=== PATIENT | female | born 1960 | race Caucasian/White ===

== ENCOUNTER 2019-02-12 06:18 | Emergency (ER) | payer OTHER ==
[2019-02-12] MEDS ORDERED: NA CHLORIDE 0.9% 1,000 ML ONE (07:04)
--- NOTE | 2019-02-12 07:18 | RAD REPORT ---
EXAM DESCRIPTION: RAD - Chest Single View - 02/12/2019 7:07 am CLINICAL HISTORY: Dizziness Chest pain. COMPARISON: Chest Single View dated 09/16/2016 FINDINGS: Portable technique limits examination quality. The lungs are mildly emphysematous but grossly clear. The heart is normal in size. Several healed rig ht lateral rib fractures.Hardware is present the cervical spine. IMPRESSION: No acute intrathoracic process suspected.
--- NOTE | 2019-02-12 07:19 | RAD REPORT ---
EXAM DESCRIPTION: CT - Head Brain Wo Cont - 02/12/2019 7:08 am CLINICAL HISTORY: Dizziness;Headache Headache, drowsiness COMPARISON: No comparisonsChest Abdomen Pelvis W Cont dated 09/16/2016 TECHNIQUE: All CT scans are performed using dose optimization technique as appropriate and may inclu de automated exposure control or mA/KV adjustment according to patient size. FINDINGS: No intracranial hemorrhage, hydrocephalus or extra-axial fluid collection.Mild brain atrop hy.No areas of brain edema or evidence of midline shift. The paranasal sinuses and mastoids are clear. The calvarium is intact. IMPRESSION: No acute intracranial abnormality.
[2019-02-12 07:31] LABS: Absolute Lymphocytes (CBC) 1.9 K/uL (0.7-4.9); Basophils % 0.5 % (0-1.3); Hematocrit 45.4 % (36.0-45.0); Lymphocytes % 21.9 % (15.3-44.8); RBC Red Blood Cell Count 4.84 M/uL (3.86-4.86)
[2019-02-12 07:32] LABS: Protime INR 1.09
[2019-02-12 07:44] LABS: ALT/SGPT 39 U/L (12-78); AST/SGOT 51 U/L (15-37); Albumin 3.7 g/dL (3.4-5.0); Alkaline Phosphatase 171 U/L (45-117); BUN Blood Urea Nitrogen 9 mg/dL (7-18); Bicarbonate 29 mmol/L (21-32); Bilirubin Direct 0.3 mg/dL (0-0.2); Bilirubin Total 0.7 mg/dL (0.2-1.0); Glucose Level 125 mg/dL (74-106); Magnesium 2.2 mg/dL (1.8-2.4); NT PRO-BNP 718 pg/mL (<125); Potassium 4.2 mmol/L (3.5-5.1); Protein, Total 7.1 g/dL (6.4-8.2); Sodium Level 139 mmol/L (136-145); Troponin (Emerg Dept Use Only) < 0.02 ng/mL (0.0-0.045)
--- NOTE | 2019-02-12 08:06 | ER ---
Nurse's Notes [facility] Name: Melanie Crump Age: 58 yrs Sex: Female : 1960 Arrival Date: 02/12/2019 Time: 06:22 Bed 13 Private MD: Queta Finley Diagnosis: Orthostatic hypotension;Dehydration Presentation: 02/12 06:29 Presenting complaint: Patient states: I have been dizzy for the last three weeks I have la1 been feeling dizzy and the place where I have had a few failed surgeries on my neck and its killing me. Transition of care: patient was not received from another setting of care. Onset of symptoms was February 12, 2019. Risk Assessment: Do you want to hurt yourself or someone else? Patient reports no desire to harm self or others. Initial Sepsis Screen: Does the patient meet any 2 criteria? No. Patient's initial sepsis screen is negative. Does the patient have a suspected source of infection? No. Patient's initial sepsis screen is negative. Care prior to arrival: None. 06:29 Method Of Arrival: Ambulatory la1 06:29 Acuity: BON 3 la1 Historical: - Allergies: 06:30 No Known Allergies; la1 - PMHx: 06:30 Chronic pain; Hypertension; la1 - Immunization history:: Adult Immunizations up to date. - Social history:: Smoking status: Patient/guardian denies using tobacco. - Ebola Screening: : No symptoms or risks identified at this time. Screenin:31 VAN Screening: Arm Drift: Patient shows no arm weakness. Patient is VAN negative. la1 06:44 Abuse screen: Denies threats or abuse. Nutritional screening: No deficits noted. la1 Tuberculosis screening: No symptoms or risk factors identified. Fall Risk None identified. Assessment: 06:43 General: Appears in no apparent distress. Behavior is calm, cooperative. Pain: la1 Complains of pain in neck. Neuro: Level of Consciousness is awake, alert, obeys commands, Oriented to person, place, time, situation. Cardiovascular: Heart tones S1 S2 present Capillary refill < 3 seconds Patient's skin is warm and dry. Respiratory: Airway is patent Respiratory effort is even, unlabored, Respiratory pattern is regular, symmetrical. GI: No signs and/or symptoms were reported involving the gastrointestinal system. : No signs and/or symptoms were reported regarding the genitourinary system. Musculoskeletal: Circulation, motion, and sensation intact. Capillary refill < 3 seconds, is brisk, in bilateral fingers. Vital Signs: 06:31 BP 90 / 77; Pulse 88; Resp 16; Temp 97.4; Pulse Ox 100% on R/A; Weight 55.34 kg; Height la1 5 ft. 5 in. (165.10 cm); 07:25 BP 147 / 78 Supine; Pulse 50; la1 07:25 BP 88 / 64 Standing; Pulse 71; la1 07:45 BP 116 / 84 Standing; Pulse 54; la1 06:31 Body Mass Index 20.30 (55.34 kg, 165.10 cm) la1 ED Course: 06:22 Patient arrived in ED. mr 06:22 Queta Finley MD is Private Physician. mr 06:30 Triage completed. la1 06:31 Arm band placed on right wrist. la1 06:38 [facility] pm1 06:38 Kade Edouard MD is Attending Physician. pm1 06:43 Serg Ireland RN is Primary Nurse. la1 06:43 Patient has correct armband on for positive identification. la1 07:08 CT Head Brain wo Cont In Process Unspecified. EDMS 07:08 XRAY Chest (1 view) In Process Unspecified. EDMS 08:17 No provider procedures requiring assistance completed. IV discontinued, intact, la1 bleeding controlled, No redness/swelling at site. Pressure dressing applied. Administered Medications: 07:23 Drug: NS 0.9% 1000 ml Route: IV; Rate: 1000 ml; Site: right antecubital; la1 07:46 Follow up: IV Status: Completed infusion la1 Outcome: 08:05 Discharge ordered by . pm1 08:17 Discharged to home ambulatory. la1 08:17 Condition: stable 08:17 Discharge instructions given to patient, Instructed on discharge instructions, follow up and referral plans. medication usage, Demonstrated understanding of instructions, follow-up care, medications. 08:17 Patient left the ED. la1 Signatures: Dispatcher [employer] [facility] Raquel Guadalupe mr Serg Ireland RN RN la1 Trevor Nazario NP [employer] pm1
--- NOTE | 2019-02-12 08:06 | EDPHYS ---
Physician Documentation [facility] Name: Melanie Crump Age: 58 yrs Sex: Female : 1960 Arrival Date: 02/12/2019 Time: 06:22 Bed 13 Private MD: Queta Finley ED Physician Kade Edouard HPI: 02/12 06:59 This 58 yrs old Female presents to ER via Ambulatory with complaints of pm1 Dizziness, Falling down. 06:59 The patient presents with feeling faint. Onset: The symptoms/episode began/occurred 3 pm1 week(s) ago. Context: occurred at home, occurred while the patient was standing up from sitting or lying position. just prior to the episode the patient experienced no apparent symptoms. Modifying factors: The symptoms are alleviated by lying down, the symptoms are aggravated by standing up, changing position. Associated signs and symptoms: The patient has no apparent associated signs or symptoms, Pertinent positives: bruise to right side of forehead, Pertinent negatives: chest pain, nausea, numbness, tingling, vomiting. Severity of symptoms: in the emergency department the symptoms are unchanged. Patient's baseline: Neuro: alert and fully oriented, Motor: no deficits, Ambulation: walks without assistance. The patient has not experienced similar symptoms in the past. The patient has not recently seen a physician. 06:59 Patient's reports dizziness occurs about 3 seconds after getting up from sitting or pm1 lying position. Historical: - Allergies: 06:30 No Known Allergies; la1 - PMHx: 06:30 Chronic pain; Hypertension; la1 - Immunization history:: Adult Immunizations up to date. - Social history:: Smoking status: Patient/guardian denies using tobacco. - Ebola Screening: : No symptoms or risks identified at this time. ROS: 06:59 Constitutional: Negative for fever, chills, and weight loss, Eyes: Negative for injury, pm1 pain, redness, and discharge, ENT: Negative for injury, pain, and discharge, Neck: Negative for injury, pain, and swelling, Cardiovascular: Negative for chest pain, palpitations, and edema, Respiratory: Negative for shortness of breath, cough, wheezing, and pleuritic chest pain, Abdomen/GI: Negative for abdominal pain, nausea, vomiting, diarrhea, and constipation, Back: Negative for injury and pain, : Negative for injury, bleeding, discharge, and swelling, MS/Extremity: Negative for injury and deformity, Skin: Negative for injury, rash, and discoloration. 06:59 Neuro: Positive for dizziness, Negative for headache, numbness, tingling, weakness. Exam: 06:59 Constitutional: This is a well developed, well nourished patient who is awake, alert, pm1 and in no acute distress. Head/Face: Normocephalic, atraumatic. Eyes: Pupils equal round and reactive to light, extra-ocular motions intact. Lids and lashes normal. Conjunctiva and sclera are non-icteric and not injected. Cornea within normal limits. Periorbital areas with no swelling, redness, or edema. ENT: Nares patent. No nasal discharge, no septal abnormalities noted. Tympanic membranes are normal and external auditory canals are clear. Oropharynx with no redness, swelling, or masses, exudates, or evidence of obstruction, uvula midline. Mucous membranes moist. Neck: Trachea midline, no thyromegaly or masses palpated, and no cervical lymphadenopathy. Supple, full range of motion without nuchal rigidity, or vertebral point tenderness. No Meningismus. Chest/axilla: Normal chest wall appearance and motion. Nontender with no deformity. No lesions are appreciated. Cardiovascular: Regular rate and rhythm with a normal S1 and S2. No gallops, murmurs, or rubs. Normal PMI, no JVD. No pulse deficits. Respiratory: Lungs have equal breath sounds bilaterally, clear to auscultation and percussion. No rales, rhonchi or wheezes noted. No increased work of breathing, no retractions or nasal flaring. Abdomen/GI: Soft, non-tender, with normal bowel sounds. No distension or tympany. No guarding or rebound. No evidence of tenderness throughout. Back: No spinal tenderness. No costovertebral tenderness. Full range of motion. Skin: Warm, dry with normal turgor. Normal color with no rashes, no lesions, and no evidence of cellulitis. MS/ Extremity: Pulses equal, no cyanosis. Neurovascular intact. Full, normal range of motion. 06:59 Neuro: Orientation: is normal, Motor: is normal, moves all fours, strength is normal, strength is 5/5 in all extremities. Vital Signs: 06:31 BP 90 / 77; Pulse 88; Resp 16; Temp 97.4; Pulse Ox 100% on R/A; Weight 55.34 kg; Height la1 5 ft. 5 in. (165.10 cm); 07:25 BP 147 / 78 Supine; Pulse 50; la1 07:25 BP 88 / 64 Standing; Pulse 71; la1 07:45 BP 116 / 84 Standing; Pulse 54; la1 06:31 Body Mass Index 20.30 (55.34 kg, 165.10 cm) la1 MDM: 06:41 Patient medically screened. pm1 07:58 Data reviewed: vital signs. Data interpreted: Pulse oximetry: on room air is 100 %. pm1 Interpretation: normal. Counseling: I had a detailed discussion with the patient and/or guardian regarding: the historical points, exam findings, and any diagnostic results supporting the discharge/admit diagnosis, lab results, radiology results, the need for outpatient follow up. 02/12 06:52 Order name: Basic Metabolic Panel; Complete Time: 07:58 pm1 02/12 06:52 Order name: CBC with Diff; Complete Time: 07:36 pm1 02/12 06:52 Order name: LFT's; Complete Time: 07:58 pm1 02/12 06:52 Order name: Magnesium; Complete Time: 07:58 pm1 02/12 06:52 Order name: NT PRO-BNP; Complete Time: 07:58 pm1 02/12 06:52 Order name: PT-INR; Complete Time: 07:36 pm1 02/12 06:52 Order name: CT Head Brain wo Cont; Complete Time: 07:25 pm1 02/12 06:52 Order name: Troponin (emerg Dept Use Only); Complete Time: 07:58 pm1 02/12 06:52 Order name: XRAY Chest (1 view); Complete Time: 07:25 pm1 02/12 06:52 Order name: EKG; Complete Time: 06:53 pm1 02/12 06:52 Order name: Cardiac monitoring; Complete Time: 07:03 pm1 02/12 06:52 Order name: EKG - Nurse/Tech; Complete Time: 07:03 pm1 02/12 06:52 Order name: IV Saline Lock; Complete Time: 07:03 pm1 02/12 06:52 Order name: Labs collected and sent; Complete Time: 07:03 pm1 02/12 06:52 Order name: O2 Per Protocol; Complete Time: 07:03 pm1 02/12 06:52 Order name: O2 Sat Monitoring; Complete Time: 07:03 pm1 02/12 06:52 Order name: Orthostatics; Complete Time: 07:23 pm1 Administered Medications: 07:23 Drug: NS 0.9% 1000 ml Route: IV; Rate: 1000 ml; Site: right antecubital; la1 07:46 Follow up: IV Status: Completed infusion la1 Disposition: 02/12/19 08:05 Discharged to Home. Impression: Orthostatic hypotension, Dehydration. - Condition is Stable. - Discharge Instructions: Dehydration, Adult, Orthostatic Hypotension, Rehydration, Adult. - Medication Reconciliation Form, Thank You Letter, Antibiotic Education, Prescription Opioid Use form. - Follow up: Emergency Department; When: As needed; Reason: Worsening of condition. Follow up: Private Physician; When: 2 - 3 days; Reason: Recheck today's complaints, Continuance of care, Re-evaluation by your physician. - Problem is new. - Symptoms have improved. Addendum: 02/14/2019 17:17 Co-signature as Attending Physician, Kade Edouard MD. g s Signatures: Dispatcher [employer] EDMS Serg Ireland RN RN la1 Trevor Nazario, KELSIE MARZIPAN MAKER pm1 Kade Edouard MD MD Corrections: (The following items were deleted from the chart) 02/12 08:17 08:05 02/12/2019 08:05 Discharged to Home. Impression: Orthostatic hypotension; la1 Dehydration. Condition is Stable. Forms are Medication Reconciliation Form, Thank You Letter, Antibiotic Education, Prescription Opioid Use. Follow up: Emergency Department; When: As needed; Reason: Worsening of condition. Follow up: Private Physician; When: 2 - 3 days; Reason: Recheck today's complaints, Continuance of care, Re-evaluation by your physician. Problem is new. Symptoms have improved. pm1
[2019-02-12 08:23] VITALS: TEMP 97.4; O2SAT 100
[2019-02-12 08:25] VITALS: BP 116/84
--- NOTE | 2019-02-12 12:28 | EKG ---
Test Date: 2019-02-12 Test Time: 07:33:09 Smalltalk Developer: DEBRA MEASUREMENT RESULTS: Intervals: Rate: 53 DC: 156 QRSD: 92 QT: 544 QTc: 510 [place]: P: 48 DC: 156 QRS: -15 T: 7 INTERPRETIVE STATEMENTS: Sinus bradycardia T wave abnormality, consider anterior ischemia Prolonged QT Abnormal ECG No previous ECG available for comparison Electronically Signed On 02-12-19 12:26:49 CDT by Robbie Viramontes
== END 2019-02-12 08:17 | disposition home or self-care (01) ==
LOC: ER 06:18
DX: I95.1 Orthostatic hypotension (principal); E86.0 Dehydration
CPT/HCPCS: 93005; 85025; 80048; 36415; 83735; 85610; 80076; 84484; 83880; 70450; 71045; 99283; J7030

== ENCOUNTER 2019-05-06 13:54 | Emergency (ER) | payer OTHER ==
--- NOTE | 2019-05-06 15:29 | RAD REPORT ---
EXAM DESCRIPTION: RAD -Hand Left 3 View - 05/06/2019 3:00 pm CLINICAL HISTORY: Left hand pain FINDINGS: No fracture Marked arthritis involves the first carpometacarpal joint consisting of osteophytes, erosions, subcho ndral cysts and bony fragmentation. Mild subluxation of the first metacarpal. Presumably these are al l chronic findings. A superimposed erosive arthritis could be present as well. Osteoporosis. Erosions involve second and third DIP joints. Narrowing of fourth and fifth DIP joints.
[2019-05-06] MEDS ORDERED: ONDANSETRON 4 MG/2 ML VIAL ONE (16:00)
[2019-05-06] MEDS ORDERED: NA CHLORIDE 0.9% 1,000 ML ONE (16:00)
[2019-05-06] MEDS ORDERED: KETOROLAC 30 MG/ML INJ ONE (16:00)
[2019-05-06] MEDS ORDERED: HYDROMORPHONE HCL 1 MG/ML INJ ONE ×2 (16:00→16:35)
[2019-05-06] MEDS ORDERED: COLCHICINE 0.6 MG TAB ONE (16:00)
[2019-05-06 16:09] LABS: Absolute Lymphocytes (CBC) 0.6 K/uL (0.7-4.9); Basophils % 0.2 % (0-1.3); Hematocrit 49.1 % (36.0-45.0); Lymphocytes % 5.1 % (15.3-44.8); MPV 8.7 fL (7.6-11.3); RBC Red Blood Cell Count 5.08 M/uL (3.86-4.86)
[2019-05-06 16:24] LABS: Albumin 4.3 g/dL (3.4-5.0); Bilirubin Total 0.8 mg/dL (0.2-1.0); Potassium 3.5 mmol/L (3.5-5.1); Protein, Total 7.5 g/dL (6.4-8.2); Uric Acid 6.3 mg/dL (2.6-6.0)
[2019-05-06] MEDS ORDERED: AMLODIPINE 5 MG TAB ONE (16:35)
[2019-05-06] MEDS ORDERED: dexAMETHasone 10 MG/ML VIAL ONE (16:48)
--- NOTE | 2019-05-06 17:00 | EDPHYS ---
Physician Documentation [facility] Name: Melanie Crump Age: 58 yrs Sex: Female : 1960 Arrival Date: 05/06/2019 Time: 13:56 Bed 17 Private MD: Queta Finley ED Physician Asael Camara HPI: 05/06 15:50 This 58 yrs old Female presents to ER via Ambulatory with complaints of Hand julien Pain. 15:50 The patient or guardian reports decreased range of motion, pain. The complaints affect julien the [facility] of right thumb. Context: The problem was sustained at an unknown location, resulted from an unknown cause. Onset: The symptoms/episode began/occurred 2 day(s) ago. Modifying factors: The symptoms are alleviated by elevation, holding still, the symptoms are aggravated by nothing. Associated signs and symptoms: The patient has no apparent associated signs or symptoms. Severity of symptoms: At their worst the symptoms were moderate, in the emergency department the symptoms are unchanged. Historical: - Allergies: 14:17 No Known Allergies; sg - Home Meds: 14:56 morphine 30 mg Oral CM24 1 cap once daily for Chronic Pain [Active]; tizanidine oral tw2 oral [Active]; - PMHx: 14:17 Chronic pain; Hypertension; sg 14:56 Arthritis; tw2 - Immunization history:: Adult Immunizations not up to date. - Social history:: Smoking status: Patient/guardian denies using tobacco. - Ebola Screening: : Patient negative for fever greater than or equal to 101.5 degrees Fahrenheit, and additional compatible Ebola Virus Disease symptoms Patient denies exposure to infectious person Patient denies travel to an Ebola-affected area in the 21 days before illness onset No symptoms or risks identified at this time. - Family history:: not pertinent. ROS: 15:50 Constitutional: Negative for fever, chills, and weight loss. julien Exam: 15:50 Constitutional: This is a well developed, well nourished patient who is awake, alert, julien and in no acute distress. Head/Face: Normocephalic, atraumatic. Eyes: Pupils equal round and reactive to light, extra-ocular motions intact. Lids and lashes normal. Conjunctiva and sclera are non-icteric and not injected. Cornea within normal limits. Periorbital areas with no swelling, redness, or edema. ENT: Nares patent. No nasal discharge, no septal abnormalities noted. Tympanic membranes are normal and external auditory canals are clear. Oropharynx with no redness, swelling, or masses, exudates, or evidence of obstruction, uvula midline. Mucous membranes moist. Neck: Trachea midline, no thyromegaly or masses palpated, and no cervical lymphadenopathy. Supple, full range of motion without nuchal rigidity, or vertebral point tenderness. No Meningismus. Chest/axilla: Normal chest wall appearance and motion. Nontender with no deformity. No lesions are appreciated. Cardiovascular: Regular rate and rhythm with a normal S1 and S2. No gallops, murmurs, or rubs. Normal PMI, no JVD. No pulse deficits. Respiratory: Lungs have equal breath sounds bilaterally, clear to auscultation and percussion. No rales, rhonchi or wheezes noted. No increased work of breathing, no retractions or nasal flaring. Abdomen/GI: Soft, non-tender, with normal bowel sounds. No distension or tympany. No guarding or rebound. No evidence of tenderness throughout. Back: No spinal tenderness. No costovertebral tenderness. Full range of motion. Skin: Warm, dry with normal turgor. Normal color with no rashes, no lesions, and no evidence of cellulitis. Neuro: Awake and alert, GCS 15, oriented to person, place, time, and situation. Cranial nerves II-XII grossly intact. Motor strength 5/5 in all extremities. Sensory grossly intact. Cerebellar exam normal. Normal gait. Psych: Awake, alert, with orientation to person, place and time. Behavior, mood, and affect are within normal limits. 15:50 Musculoskeletal/extremity: Extremities: noted in the lateral aspect of right hand: decreased ROM, erythema, pain. Vital Signs: 14:19 Pulse 107; Resp 17; Temp 97.7; Pulse Ox 98% on R/A; Weight 54.43 kg; Height 5 ft. 5 in. sg (165.10 cm); Pain 10/10; 14:21 BP 181 / 100; sg 14:54 BP 173 / 118; Pulse 103; Resp 17; Pulse Ox 96% on R/A; Pain 10/10; tw2 15:35 BP 177 / 115; Pulse 93; Resp 17; Pulse Ox 95% on R/A; tw2 16:24 BP 184 / 126; Pulse 115; Resp 20; Pulse Ox 95% on R/A; Pain 9/10; tw2 17:09 BP 172 / 115; Pulse 109; Resp 17; Pulse Ox 95% on R/A; Pain 7/10; tw2 17:43 BP 166 / 103; Pulse 100; Resp 17; Pulse Ox 95% on R/A; Pain 6/10; tw2 14:19 Body Mass Index 19.97 (54.43 kg, 165.10 cm) sg 14:54 provider notified. tw2 MDM: 14:34 Patient medically screened. julien 15:51 Data reviewed: vital signs, nurses notes, lab test result(s), radiologic studies, plain julien films. 05/06 15:50 Order name: CBC with Diff [facility] 05/06 15:50 Order name: Comprehensive Metabolic Panel; Complete Time: 16:25 [facility] 05/06 14:35 Order name: Hand Left 3 View XRAY; Complete Time: 15:52 [facility] 05/06 15:50 Order name: Uric Acid; Complete Time: 16:25 [facility] 05/06 15:53 Order name: Splint - Thumb Spica; Complete Time: 16:48 [facility] 05/06 15:59 Order name: IV Start; Complete Time: 15:59 tw2 Administered Medications: 16:00 Drug: NS 0.9% 1000 ml Route: IV; Rate: 1 bolus; Site: right antecubital; tw2 17:43 Follow up: Response: No adverse reaction; IV Status: Completed infusion; IV Intake: tw2 1000ml 16:00 Drug: Colcrys 1.2 mg Route: PO; tw2 17:04 Follow up: Response: No adverse reaction tw2 16:00 Drug: TORadol 30 mg Route: IVP; Site: right antecubital; tw2 16:23 Follow up: Response: No adverse reaction; Pain is unchanged, physician notified tw2 16:01 Drug: Zofran 4 mg Route: IVP; Site: right antecubital; tw2 16:29 Follow up: Response: No adverse reaction tw2 16:03 Drug: Dilaudid 1 mg Route: IVP; Site: right antecubital; tw2 16:23 Follow up: Response: No adverse reaction; Pain is unchanged, physician notified; RASS: tw2 Alert and Calm (0) 16:35 Drug: Norvasc 10 mg Route: PO; tw2 17:37 Follow up: Response: No adverse reaction; No change in condition; Blood pressure is tw2 unchanged; Blood pressure is unchanged, physician notified, 16:35 Drug: Dilaudid 1 mg Route: IVP; Site: right antecubital; tw2 17:43 Follow up: Response: No adverse reaction; Pain is decreased; RASS: Restless (+1) tw2 16:47 CANCELLED (Duplicate Order): Dilaudid 1 mg IVP once; RASS on ADMIN: Combtv4, Very tw2 Agttd3, Agttd2, Rstlss1, AlertClm0, Drwsy-1, Lt Sdtn-2, Mod Sdtn-3, Dp Sdtn-4, UnArsble-5 17:00 Drug: Decadron - Dexamethasone 10 mg Route: IVP; Site: right antecubital; tw2 17:43 Follow up: Response: No adverse reaction tw2 17:04 Drug: Colcrys 0.6 mg Route: PO; tw2 17:30 Follow up: Response: No adverse reaction tw2 Disposition: 05/06/19 16:59 Discharged to Home. Impression: Pain in right hand - MCM, Osteoarthritis, unspecified site, Essential (primary) hypertension. - Condition is Stable. - Discharge Instructions: Arthritis, Hypertension, Musculoskeletal Pain, Hypertension, Oxit-yd-Brvb, Arthritis, Fxjf-wf-Dkoc, Hand Pain. - Prescriptions for Colchicine- Probenecid 0.5-500 mg Oral Tablet - take 1 tablet by ORAL route every 1 hour up to 3 hours; 3 tablet. Motrin IB 200 mg Oral Tablet - take 2 tablet by ORAL route every 6 hours As needed as needed with food; 30 tablet. Norvasc 5 mg Oral Tablet - take 1 tablet by ORAL route once daily; 20 tablet. Dexamethasone 0.5 mg Oral Tablet - take 1 tablet by ORAL route 3 times per day; 9 tablet. - Medication Reconciliation Form, Thank You Letter, Antibiotic Education, Prescription Opioid Use form. - Follow up: Queta Finley; When: 2 - 3 days; Reason: Recheck today's complaints, Continuance of care, Re-evaluation by your physician. Follow up: Steve Arthur; When: 2 - 3 days; Reason: Recheck today's complaints, Re-evaluation by your physician. - Problem is new. - Symptoms have improved. Signatures: Dispatcher [employer] EDEdmar Sanchez RN RN Asael Paredes MD MD cha Wise, Tara RN RN tw2 Corrections: (The following items were deleted from the chart) 16:47 16:34 Dilaudid 1 mg IVP once; RASS on ADMIN: Combtv4, Very Agttd3, Agttd2, Rstlss1, tw2 AlertClm0, Drwsy-1, Lt Sdtn-2, Mod Sdtn-3, Dp Sdtn-4, UnArsble-[address] [facility] 17:44 16:59 05/06/2019 16:59 Discharged to Home. Impression: Pain in right hand - MCM; tw2 Osteoarthritis, unspecified site; Essential (primary) hypertension. Condition is Stable. Discharge Instructions: Arthritis, Musculoskeletal Pain, Arthritis, Sbjt-wf-Jfcy, Hand Pain, Hypertension, Hypertension, Enxh-lh-Gkfi. Prescriptions for Colchicine-Probenecid 0.5-500 mg Oral Tablet - take 1 tablet by ORAL route every 1 hour up to 3 hours; 3 tablet, Motrin IB 200 mg Oral Tablet - take 2 tablet by ORAL route every 6 hours As needed as needed with food; 30 tablet, Norvasc 5 mg Oral Tablet - take 1 tablet by ORAL route once daily; 20 tablet, Dexamethasone 0.5 mg Oral Tablet - take 1 tablet by ORAL route 3 times per day; 9 tablet. and Forms are Medication Reconciliation Form, Thank You Letter, Antibiotic Education, Prescription Opioid Use. Follow up: Queta Finley; When: 2 - 3 days; Reason: Recheck today's complaints, Continuance of care, Re-evaluation by your physician. Follow up: Steve Arthur; When: 2 - 3 days; Reason: Recheck today's complaints, Re-evaluation by your physician. Problem is new. Symptoms have improved. julien
--- NOTE | 2019-05-06 17:00 | ER ---
Nurse's Notes [facility] Name: Melanie Crump Age: 58 yrs Sex: Female : 1960 Arrival Date: 05/06/2019 Time: 13:56 Bed 17 Private MD: Queta Finley Diagnosis: Pain in right hand-MCM;Osteoarthritis, unspecified site;Essential (primary) hypertension Presentation: 05/06 14:20 Presenting complaint: Patient states: I have had left hand and thumb pain for about a sg day, with swelling and tenderness to the hand, there is a hx of arthritis reported, denies injury or trauma. Transition of care: patient was not received from another setting of care. Onset of symptoms was May 06, 2019. Risk Assessment: Do you want to hurt yourself or someone else? Patient reports no desire to harm self or others. Initial Sepsis Screen: Does the patient meet any 2 criteria? HR > 90 bpm. No. Patient's initial sepsis screen is negative. Does the patient have a suspected source of infection? No. Patient's initial sepsis screen is negative. Care prior to arrival: None. 14:20 Method Of Arrival: Ambulatory sg 14:20 Acuity: BON 3 sg Historical: - Allergies: 14:17 No Known Allergies; sg - Home Meds: 14:56 morphine 30 mg Oral CM24 1 cap once daily for Chronic Pain [Active]; tizanidine oral tw2 oral [Active]; - PMHx: 14:17 Chronic pain; Hypertension; sg 14:56 Arthritis; tw2 - Immunization history:: Adult Immunizations not up to date. - Social history:: Smoking status: Patient/guardian denies using tobacco. - Ebola Screening: : Patient negative for fever greater than or equal to 101.5 degrees Fahrenheit, and additional compatible Ebola Virus Disease symptoms Patient denies exposure to infectious person Patient denies travel to an Ebola-affected area in the 21 days before illness onset No symptoms or risks identified at this time. - Family history:: not pertinent. Screenin:55 Abuse screen: Denies injuries from another. Nutritional screening: No deficits noted. tw2 Tuberculosis screening: No symptoms or risk factors identified. Fall Risk None identified. Assessment: 14:25 General: Appears uncomfortable, slender, well groomed, Behavior is cooperative, tw2 appropriate for age. Pain: Complains of pain in left hand. Neuro: Level of Consciousness is awake, alert, obeys commands, Oriented to person, place, time, situation. Cardiovascular: Heart tones S1 S2 Patient's skin is warm and dry. Respiratory: Airway is patent Respiratory effort is even, unlabored, Respiratory pattern is regular, symmetrical, Breath sounds are clear bilaterally. GI: No signs and/or symptoms were reported involving the gastrointestinal system. Abdomen is flat. : No signs and/or symptoms were reported regarding the genitourinary system. EENT: No signs and/or symptoms were reported regarding the EENT system. Derm: No signs and/or symptoms reported regarding the dermatologic system. Musculoskeletal: Swelling present in lateral aspect of left hand with redness noted to medial aspect of left wrist, appears to be arthritic changes noted to all joints in hands b/l. 15:34 Reassessment: No changes from previously documented assessment. Patient and/or family tw2 updated on plan of care and expected duration. Pain level reassessed. Patient is alert, oriented x 3, equal unlabored respirations, skin warm/dry/pink. pts family request update on pts condition, provider notified. 15:46 Reassessment: provider at bedside at this time. tw2 16:24 Reassessment: No changes from previously documented assessment. Patient and/or family tw2 updated on plan of care and expected duration. Pain level reassessed. Patient is alert, oriented x 3, equal unlabored respirations, skin warm/dry/pink. Patient states symptoms have not improved. 17:09 Reassessment: No changes from previously documented assessment. Patient and/or family tw2 updated on plan of care and expected duration. Pain level reassessed. Patient is alert, oriented x 3, equal unlabored respirations, skin warm/dry/pink. pt states "it feels just a bit better and my daughter should be on her way shortly.". 17:37 Reassessment: Patient and/or family updated on plan of care and expected duration. Pain tw2 level reassessed. Patient is alert, oriented x 3, equal unlabored respirations, skin warm/dry/pink. Patient states feeling better. Vital Signs: 14:19 Pulse 107; Resp 17; Temp 97.7; Pulse Ox 98% on R/A; Weight 54.43 kg; Height 5 ft. 5 in. sg (165.10 cm); Pain 10/10; 14:21 BP 181 / 100; sg 14:54 BP 173 / 118; Pulse 103; Resp 17; Pulse Ox 96% on R/A; Pain 10/10; tw2 15:35 BP 177 / 115; Pulse 93; Resp 17; Pulse Ox 95% on R/A; tw2 16:24 BP 184 / 126; Pulse 115; Resp 20; Pulse Ox 95% on R/A; Pain 9/10; tw2 17:09 BP 172 / 115; Pulse 109; Resp 17; Pulse Ox 95% on R/A; Pain 7/10; tw2 17:43 BP 166 / 103; Pulse 100; Resp 17; Pulse Ox 95% on R/A; Pain 6/10; tw2 14:19 Body Mass Index 19.97 (54.43 kg, 165.10 cm) sg 14:54 provider notified. tw2 ED Course: 13:56 Patient arrived in ED. mr 13:56 Rony Montano MD is Private Physician. mr 13:56 Queta Finley MD is Private Physician. mr 14:17 Arm band placed on. sg 14:21 Triage completed. sg 14:21 Bed in low position. Call light in reach. Adult w/ patient. campus monitor on. Pulse tw2 ox on. NIBP on. Warm blanket given. 14:26 Stephania Arce, RN is Primary Nurse. tw2 14:34 Asael Camara MD is Attending Physician. julien 14:59 Hand Left 3 View XRAY In Process Unspecified. EDMS 15:55 Inserted saline lock: 22 gauge in right antecubital area, using aseptic technique. tw2 Blood collected. 16:58 Queta Finley MD is Referral Physician. julien 16:58 Steve Arthur MD is Referral Physician. julien 17:10 Awaiting transportation, Awaiting: d/t pain medicine given during this visit. tw2 17:43 No provider procedures requiring assistance completed. IV discontinued, intact, tw2 bleeding controlled, No redness/swelling at site. Pressure dressing applied. Administered Medications: 16:00 Drug: NS 0.9% 1000 ml Route: IV; Rate: 1 bolus; Site: right antecubital; tw2 17:43 Follow up: Response: No adverse reaction; IV Status: Completed infusion; IV Intake: tw2 1000ml 16:00 Drug: Colcrys 1.2 mg Route: PO; tw2 17:04 Follow up: Response: No adverse reaction tw2 16:00 Drug: TORadol 30 mg Route: IVP; Site: right antecubital; tw2 16:23 Follow up: Response: No adverse reaction; Pain is unchanged, physician notified tw2 16:01 Drug: Zofran 4 mg Route: IVP; Site: right antecubital; tw2 16:29 Follow up: Response: No adverse reaction tw2 16:03 Drug: Dilaudid 1 mg Route: IVP; Site: right antecubital; tw2 16:23 Follow up: Response: No adverse reaction; Pain is unchanged, physician notified; RASS: tw2 Alert and Calm (0) 16:35 Drug: Norvasc 10 mg Route: PO; tw2 17:37 Follow up: Response: No adverse reaction; No change in condition; Blood pressure is tw2 unchanged; Blood pressure is unchanged, physician notified, 16:35 Drug: Dilaudid 1 mg Route: IVP; Site: right antecubital; tw2 17:43 Follow up: Response: No adverse reaction; Pain is decreased; RASS: Restless (+1) tw2 16:47 CANCELLED (Duplicate Order): Dilaudid 1 mg IVP once; RASS on ADMIN: Combtv4, Very tw2 Agttd3, Agttd2, Rstlss1, AlertClm0, Drwsy-1, Lt Sdtn-2, Mod Sdtn-3, Dp Sdtn-4, UnArsble-5 17:00 Drug: Decadron - Dexamethasone 10 mg Route: IVP; Site: right antecubital; tw2 17:43 Follow up: Response: No adverse reaction tw2 17:04 Drug: Colcrys 0.6 mg Route: PO; tw2 17:30 Follow up: Response: No adverse reaction tw2 Intake: 17:43 IV: 1000ml; Total: 1000ml. tw2 Outcome: 16:59 Discharge ordered by . julien 17:43 Discharged to home ambulatory, with family. tw2 17:43 Condition: stable 17:43 Discharge instructions given to patient, family, Instructed on discharge instructions, follow up and referral plans. no drinking with medication, no driving heavy equipment, medication usage, Demonstrated understanding of instructions, follow-up care, medications, Prescriptions given X 4. 17:44 Patient left the ED. tw2 Signatures: Dispatcher [employer] EDEdmar Sanchez RN RN sg Anderson, Corey, MD MD cha Rivera, Mary mr Wise, Tara, RN RN tw2
[2019-05-06 20:36] LABS: Blood Morphology Comment NOT SEEN (NOT SEEN); Platelet Estimate ADEQ; Urine White Blood Cell Casts OK
== END 2019-05-06 17:44 | disposition home or self-care (01) ==
LOC: ER 13:54
DX: M19.041 Primary osteoarthritis, right hand (principal); I10 Essential (primary) hypertension
CPT/HCPCS: 96361; 85025; 36415; 84550; 80053; 73130; 96375; 96374; 99284; J1100; J1170 ×2; J7030; J2405

== ENCOUNTER 2019-09-19 09:40 | Emergency (ER) | payer OTHER ==
[2019-09-19] MEDS ORDERED: HYDROMORPHONE HCL 0.5 MG/0.5 ML INJ ONE ×2 (10:09→10:30)
[2019-09-19] MEDS ORDERED: ONDANSETRON 4 MG/2 ML VIAL ONE (10:09)
[2019-09-19 10:25] LABS: Absolute Lymphocytes (CBC) 1.9 K/uL (0.7-4.9); Basophils % 0.3 % (0-1.3); Hematocrit 52.4 % (36.0-45.0); Lymphocytes % 16.4 % (15.3-44.8); MPV 9.5 fL (7.6-11.3); RBC Red Blood Cell Count 5.42 M/uL (3.86-4.86)
[2019-09-19 10:26] LABS: Protime INR 1.02
[2019-09-19 10:30] LABS: Potassium 3.8 mmol/L (3.5-5.1)
--- OUTSIDE RECORDS SUMMARY | 2019-09-19 10:30 | XMS REPORT | Summary of Care ---
:[address] [facility] Address [address] [place] [id number] Encounter HQ Encntr_yolanda(FIN) [id number] Date(s): 09/16/16 - 09/20/[address] Professional Services provided by [facility] [place] [address]- Discharge Disposition: Home or Self Care Attending Physician: Abel Jackson MD Admitting Physician: Abel Jackson MD Vital Signs Most recent to oldest 1 2 3 [Reference Range]: Height 162.56 cm 165.1 cm (09/17/16 5:04 AM) (09/16/16 11:24 PM) Temperature Oral [96.4-99.1 98.8 DegF 97.2 DegF 97.5 DegF DegF] (09/20/16 4:15 PM) (09/20/16 12:49 PM) (09/20/16 8: 08 AM) Blood Pressure [90-140/60-90 137/79 mmHg 166/103 mmHg 143 /98 mmHg mmHg] (09/20/16 5:08 PM) *HI* *HI* (09/20/16 4:15 PM) (09/20/16 12:49 PM) Respiratory Rate [14-20 20 BRMIN 18 BRMIN 18 BRMIN BRMIN] (09/20/16 4:15 PM) (09/20/16 12:49 PM) (09/20/16 8: 08 AM) Peripheral Pulse Rate [60-100 99 bpm 104 bpm 96 bpm bpm] (09/20/16 5:08 PM) *HI* (09/20/16 12:49 PM) (09/20/16 4:15 PM) Weight 52.727 kg 53 kg (09/17/16 5:04 AM) (09/16/16 11:24 PM) Body Mass Index 19.95 m2 19.44 m2 (09/17/16 5:04 AM) (09/16/16 11:24 PM) Problem List Condition Effective Dates Status Health Status Informant Chronic pain(Confirmed) 2006 Resolved Depression(Confirmed) Resolved Allergies, Adverse Reactions, Alerts Substance Reaction Severity Status NKDA Active Medications acetaminophen 1,000 mg, 2 tab, Route: PO, Drug form: TAB, Q6H, Dosing Weight 52.727, kg, Start date: 09/17/16 12:00:00 CDT, Duration: 30 day, Stop date: 10/17/16 6:00:00 CDT Notes: Max acetaminophen 4000 mg/day (4 gm/day). (Same as: Tylenol Extra Strength) Start Date: 09/17/16 Stop Date: 09/18/16 Status: Discontinuedacetaminophen 1,000 mg, 100 mL, Route: IV, Drug form: INJ, Q6H, Dosing Weight 53, kg, Start date: 09/17/16 6:00:00CDT, Duration: 30 day, Stop date: 10/17/16 0:00:00 CDT Notes: Infuse over 15 minutesDo not exceed 4gm/day of acetaminophen MEDICATION WASTE ProductSize: 1000 mgProduct Wasted: ___ mg Start Date: 09/17/16 Stop Date: 09/17/16 Status: Discontinuedacetaminophen-hydrocodone 1 tab, Route: PO, Drug Form: TAB, Q4H, PRN Pain Score 1-3, Start date: 09/18/16 11:31:00 CDT, Duration: 30 day, Stop date: 10/18/16 11:30:00 CDT Notes: (Same as: Brandeis 325/5) Do not exceed 4gm/day of acetaminophen. Start Date: 09/18/16 Stop Date: 09/20/16 Status: Discontinuedacetaminophen-hydrocodone 2 tab, Route: PO, Drug Form: TAB, Q4H, PRN Pain Score 4-6, Start date: 09/18/16 11:32:00 CDT, Duration: 30 day, Stop date: 10/18/16 11:31:00 CDT Notes: (Same as: Brandeis 325/5) Do not exceed 4gm/day of acetaminophen. Start Date: 09/18/16 Stop Date: 09/20/16 Status: Discontinuedacetaminophen-hydrocodone 325 mg-5 mg oral tablet See Instructions, PRN Pain Score 6-10, 1-2 tab PO Q6H prn for pain not to exceed 8 tablets/day, # 30 tab, 0 Refill(s) Start Date: 09/20/16 Stop Date: 09/27/16 Status: OrderedALPRAZOLam 0.5 mg, 1 tab, Route: PO, Drug form: TAB, ONCE, Dosing Weight 52.727, kg, PRN Anxiety, Start date: 09/17/16 6:20:00 CDT Notes: With food or milk(Same as: Xanax) Start Date: 09/17/16 Stop Date: 09/17/16 Status: Completedcalcium-vitamin D 500 mg-400 intl units oral tablet, chewable 1 tab, Route: CHEW, Drug Form: CHEWTAB, Dosing Weight 52.727, kg, BID, Start date: 09/19/16 9:00:00 CDT, Duration: 30 day, Stop date: 10/18/16 17:00:00 CDT Notes: (calcium carbonate-vit D 500mg-400unit chew TAB) Same as: Oscal 500+D Start Date: 09/19/16 Stop Date: 09/20/16 Status: Discontinuedcalcium-vitamin D 500 mg-400 intl units oral tablet, chewable 1 tab, CHEW, BID, # 60 tab, 0 Refill(s) Start Date: 09/20/16 Status: Orderedcelecoxib 200 mg, 1 cap, Route: PO, Drug form: CAP, Q12H, Dosing Weight 53, kg, Start date: 09/17/16 9:00:00 CDT, Duration: 30 day, Stop date: 10/16/16 21:00:00 CDT Notes: NSAID. Please check indication. Not for seizure. (Same As: CeleBREX) Start Date: 09/17/16 Stop Date: 09/20/16 Status: Discontinuedciprofloxacin 500 mg, 1 tab, Route: PO, Drug form: TAB, [id number], Dosing Weight 52.727, kg, Start date: 09/18/16 11:00:00 CDT, Duration: 30 day, Stop date: 10/17/16 23:00:00 CDT Notes: May interfere w/enteral feedings - Take 1 hr before or 2 hrs after antacids, dairy pdt & minerals. On empty stomach. Start Date: 09/18/16 Stop Date: 09/20/16 Status: DiscontinuedDilaudid 1 mg, 0.5 mL, Route: IVP, Drug form: INJ, ONCE, Dosing Weight 53, kg, Priority: STAT, Start date: 09/17/16 3:46:00 CDT, Stop date: 09/17/16 3:46:00 CDT Notes: Same as: Dilaudid Start Date: 09/17/16 Stop Date: 09/17/16 Status: CompletedDilaudid 1 mg, 0.5 mL, Route: IVP, Drug form: INJ, ONCE, Dosing Weight 53, kg, Priority: STAT, Start date: 09/17/16 1:55:00 CDT, Stop date: 09/17/16 1:55:00 CDT Notes: Same as: Dilaudid Start Date: 09/17/16 Stop Date: 09/17/16 Status: Completeddocusate sodium 100 mg oral capsule 100 mg, 1 cap, Route: PO, Drug form: CAP, BID, Dosing Weight 53, kg, Start date: 09/17/16 9:00:00 CDT, Duration: 30 day, Stop date: 10/16/16 17:00:00 CDT Notes: (Same as: Colace) (Do Not Crush) Start Date: 09/17/16 Stop Date: 09/20/16 Status: DiscontinuedEffexor 75 mg, 1 tab, Route: PO, Drug form: TAB, BID, Start date: 09/18/16 20:00:00 CDT, Duration: 30 day, Stop date: 10/18/16 17:00:00 CDT Notes: (Same As: Effexor) Start Date: 09/18/16 Stop Date: 09/20/16 Status: Discontinuedenoxaparin 30 mg, 0.3 mL, Route: SUB-Q, Drug form: INJ, [id number], Dosing Weight 53, kg, Priority: NOW, Start date: 09/17/16 4:53:00 CDT, Duration: 30 day, Stop date: 10/16/16 16:53:00 CDT Notes: (Same as: Lovenox) Start Date: 09/17/16 Stop Date: 09/20/16 Status: Discontinuedhydromorphone 1 mg, 0.5 mL, Route: IVP, Drug form: INJ, ONCE, Dosing Weight 53, kg, Priority: STAT, Start date: 09/17/16 1:02:00 CDT, Stop date: 09/17/16 1:02:00 CDT Notes: Same as: Dilaudid Start Date: 09/17/16 Stop Date: 09/17/16 Status: Completedhydromorphone 1 mg, 0.5 mL, Route: IVP, Drug form: INJ, ONCE, Dosing Weight 53, kg, Priority: STAT, Start date: 09/17/16 2:44:00 CDT, Stop date: 09/17/16 2:44:00 CDT Notes: Same as: Dilaudid Start Date: 09/17/16 Stop Date: 09/17/16 Status: Completedhydromorphone 1 mg, 0.5 mL, Route: IVP, Drug form: INJ, ONCE, Dosing Weight 53, kg, Priority: STAT, Start date: 09/17/16 2:43:00 CDT, Stop date: 09/17/16 2:43:00 CDT Notes: Same as: Dilaudid Start Date: 09/17/16 Stop Date: 09/17/16 Status: Completedhydromorphone 1 mg, Route: IVP, ONCE, Dosing Weight 53, kg, Priority: STAT, Start date: 09/17/16 0:16:00 CDT, Stopdate: 09/17/16 0:16:00 CDT Start Date: 09/17/16 Stop Date: 09/17/16 Status: Completedlabetalol 10 mg, 2 mL, Route: IVP, Drug form: INJ, Q15Min, Dosing Weight 52.727, kg, Start date: 09/17/16 6:19:00 CDT, Duration: 3 doses or times, Stop date: 09/17/16 6:49:00 CDT Start Date: 09/17/16 Stop Date: 09/17/16 Status: Deletedlabetalol 10 mg, 2 mL, Route: IVP, Drug form: INJ, ONCE, Dosing Weight 52.727, kg, PRN Hypertension, Start date: 09/17/16 6:32:00 CDT Start Date: 09/17/16 Stop Date: 09/18/16 Status: CompletedLidoderm 5% topical film (patch) 2 patch, Route: TOP, Q24H, Drug form: FILM, Start date: 09/17/16 9:49:00 CDT, Duration: 30 day, Stopdate: 10/16/16 9:49:00 CDT Notes: Apply only once for up to 12 hours in [id number] period (12 hours on and 12 hours off).(Same as: Lidoderm)"Remove old patch before application of new patch" Start Date: 09/17/16 Stop Date: 09/20/16 Status: DiscontinuedLyrica 100 mg, 1 cap, Route: PO, Drug form: CAP, Q8H, Dosing Weight 53, kg, Start date: 09/17/16 8:00:00 CDT, Duration: 30 day, Stop date: 10/17/16 0:00:00 CDT Notes: (Same as: Lyrica) Start Date: 09/17/16 Stop Date: 09/20/16 Status: Discontinuedmelatonin 3 mg oral tablet 3 mg, 1 tab, Route: PO, Drug Form: TAB, Dosing Weight 52.727, kg, Bedtime, Start date: 09/17/16 21:00:00 CDT, Duration: 30 day, Stop date: 10/16/16 21:00:00 CDT Notes: (Same as: Melatonin) Start Date: 09/17/16 Stop Date: 09/20/16 Status: Discontinuedmethocarbamol 1,000 mg, 2 tab, Route: PO, Drug form: TAB, Q8H, Dosing Weight 52.727, kg, Start date: 09/17/16 9:55:00 CDT, Duration: 30 day, Stop date: 10/17/16 8:00:00 CDT Notes: (Same as:Robaxin) Start Date: 09/17/16 Stop Date: 09/20/16 Status: Discontinuedmontelukast 10 mg oral tablet 10 mg = 1 tab, PO, Bedtime, # 90 tab, 0 Refill(s) Start Date: 09/17/16 Status: Orderedmorphine 30 mg oral capsule 30 mg = 1 cap, PO, BID, PRN Pain, 0 Refill(s) Start Date: 09/17/16 Status: Orderedmorphine Sulfate 4 mg, Route: IVP, ONCE, Dosing Weight 53, kg, Priority: STAT, Start date: 09/17/16 2:44:00 CDT, Stopdate: 09/17/16 2:44:00 CDT Start Date: 09/17/16 Stop Date: 09/17/16 Status: DiscontinuedMS Contin 30 mg, 1 tab, Route: PO, Drug form: ERTAB, [id number], Dosing Weight 52.727, kg, Start date: 09/17/16 10:00:00 CDT, Duration: 30 day, Stop date: 10/16/16 22:00:00 CDT Notes: Do not crush (Same as:Oramorph SR, MS Contin) Start Date: 09/17/16 Stop Date: 09/20/16 Status: DiscontinuedNorco 5/325 oral tablet Route: PO, Dosing Weight 52.727, kg, Q4H, PRN Pain Score 1-5, Start date: 09/18/16 11:00:00 CDT, Duration: 30 day, Stop date: 10/18/16 10:59:00 CDT Start Date: 09/18/16 Stop Date: 09/18/16 Status: Canceledoxybutynin 5 mg, 1 tab, Route: PO, Drug form: TAB, TID, Dosing Weight 53, kg, Start date: 09/17/16 9:00:00 CDT,Duration: 30 day, Stop date: 10/16/16 17:00:00 CDT Notes: Same as: Ditropan) Start Date: 09/17/16 Stop Date: 09/20/16 Status: Discontinuedoxybutynin 5 mg oral tablet 5 mg = 1 tab, PO, BID, # 60 tab, 1 Refill(s) Start Date: 09/17/16 Status: OrderedoxyCODONE 5 mg immediate release 10 mg, 2 tab, Route: PO, Drug form: TAB, Q4H, Dosing Weight 52.727, kg, PRN Pain Score 7-10, Start date: 09/17/16 9:50:00 CDT, Duration: 30 day, Stop date: 10/17/16 9:49:00 CDT Notes: (Same as: Roxicodone) Start Date: 09/17/16 Stop Date: 09/19/16 Status: DiscontinuedoxyCODONE 5 mg immediate release 5 mg, 1 tab, Route: PO, Drug form: TAB, Q4H, Dosing Weight 52.727, kg, PRN Pain Score 4-6, Start date: 09/17/16 9:50:00 CDT, Duration: 30 day, Stop date: 10/17/16 9:49:00 CDT Notes: (Same as: Roxicodone) Start Date: 09/17/16 Stop Date: 09/19/16 Status: DiscontinuedoxyCODONE 5 mg oral tablet 5 mg, 1 tab, Route: PO, Drug form: TAB, Q6H, Dosing Weight 53, kg, PRN Pain Score 4-6, Start date: 09/17/16 4:53:00 CDT, Duration: 30 day, Stop date: 10/17/16 4:52:00 CDT Notes: (Same as: Roxicodone) Start Date: 09/17/16 Stop Date: 09/17/16 Status: DiscontinuedPlasma-Lyte A PH-7.4 1000 ml INJ 1,000 mL 1,000 mL, Rate: 100 ml/hr, Infuse over: 10 hr, Route: IV, Dosing Weight 53 kg, Total Volume: 1,000, Start date: 09/17/16 4:53:00 CDT, Duration: 30 day, Stop date: 10/17/16 4:52:00 CDT Notes: WASTE: F/P - Sink; E - Municipal Trash Bin Start Date: 09/17/16 Stop Date: 09/18/16 Status: Discontinuedremove patch 1 patch, Route: TOP, Bedtime, Drug form: ERFILM, Start date: 09/17/16 21:00:00 CDT, Duration: 30 day, Stop date: 10/16/16 21:00:00 CDT Notes: Remove patch 12 hours after application each day. Start Date: 09/17/16 Stop Date: 09/20/16 Status: DiscontinuedRocephin 1 gm, Route: IVPB, Drug form: PDR/INJ, [id number], Dosing Weight 52.727, kg, Start date: 09/18/16 11:00:00 CDT, Duration: 3 day, Stop date: 09/20/16 11:00:00 CDT Notes: (Same As: Rocephin).Use with 100 mL NS and infuse over 30 min MEDICATION WASTE Product Size: 1000 mgProduct Wasted: ___ mg Start Date: 09/18/16 Stop Date: 09/18/16 Status: CanceledSaline Flush 0.9% 10 mL, Route: IVP, Drug Form: INJ, Dosing Weight 53, kg, PRN, PRN Line Flush, Start date: 09/17/16 0:02:00 CDT, Duration: 30 day, Stop date: 10/17/16 0:01:00 CDT Notes: Same as: BD Posiflush Sterile Start Date: 09/17/16 Stop Date: 09/20/16 Status: Discontinuedsenna 8.6 mg oral tablet 17.2 mg, 2 tab, Route: PO, Drug Form: TAB, Dosing Weight 53, kg, Q12H, Start date: 09/17/16 9:00:00 CDT, Duration: 30 day, Stop date: 10/16/16 21:00:00 CDT Notes: (Same as: Senokot) Start Date: 09/17/16 Stop Date: 09/20/16 Status: Discontinuedtizanidine 4 mg oral tablet 4 mg = 1 tab, PO, Q8H, PRN for muscle spasms Start Date: 09/17/16 Status: Orderedtramadol 100 mg, 2 tab, Route: PO, Drug form: TAB, Q6H, Dosing Weight 53, kg, Start date: 09/17/16 6:00:00 CDT, Duration: 30 day, Stop date: 10/17/16 0:00:00 CDT Notes: Not to exceed 400mg/day. (Same As: Ultram) Start Date: 09/17/16 Stop Date: 09/17/16 Status: DiscontinuedTrandate 10 mg, 2 mL, Route: IVP, Drug form: INJ, ONCE, Dosing Weight 52.727, kg, Start date: 09/17/16 6:28:00 CDT, Stop date: 09/17/16 6:28:00 CDT Start Date: 09/17/16 Stop Date: 09/17/16 Status: Completedvenlafaxine 25 mg, 1 tab, Route: PO, Drug form: TAB, TID, Dosing Weight 53, kg, Start date: 09/17/16 9:00:00 CDT, Duration: 30 day, Stop date: 10/16/16 17:00:00 CDT Notes: (Same As: Effexor) Start Date: 09/17/16 Stop Date: 09/18/16 Status: Discontinuedvenlafaxine 75 mg oral tablet 75 mg = 1 tab, PO, BID, # 180 tab, 0 Refill(s) Start Date: 09/17/16 Status: OrderedZofran 4 mg, Route: IVP, Drug form: INJ, ONCE, Dosing Weight 53, kg, Priority: STAT, Start date: 09/17/16 0:27:00 CDT, Stop date: 09/17/16 0:27:00 CDT Start Date: 09/17/16 Stop Date: 09/17/16 Status: Completed Results BLOOD BANK RESULTS Most recent to oldest [Reference Range]: 1 2 ABO/Rh A POS *Unknown* (09/17/16 12:19 AM) Antibody Scrn Negative (09/17/16 12:19 AM) ELECTROLYTES Most recent to oldest [Reference Range]: 1 2 Sodium Lvl [135-145 mEq/L] 138 mEq/L 138 mEq/L (09/18/16 9:15 AM) (09/17/16 12:27 AM) Potassium Lvl [3.5-5.1 mEq/L] 3.8 mEq/L 3.7 mEq/L (09/18/16 9:15 AM) (09/17/16 12:27 AM) Chloride Lvl [95-109 mEq/L] 101 mEq/L 100 mEq/L (09/18/16 9:15 AM) (09/17/16 12:27 AM) CO2 [24-32 mEq/L] 27 mEq/L 25 mEq/L (09/18/16 9:15 AM) (09/17/16 12:27 AM) AGAP [10.0-20.0 mEq/L] 13.8 mEq/L 16.7 mEq/L (09/18/16 9:15 AM) (09/17/16 12:27 AM) CHEM PANEL Most recent to oldest [Reference Range]: 1 2 Creatinine Lvl [0.50-1.40 mg/dL] 1.08 mg/dL 0.78 mg /dL (09/18/16 9:15 AM) (09/17/16 12:27 AM) eGFR 58 mL/min/1.73m2 1 86 mL/min/1.73m2 2 *NA* *NA* (09/18/16 9:15 AM) (09/17/16 12:27 AM) BUN [7-22 mg/dL] 14 mg/dL 10 mg/dL (09/18/16 9:15 AM) (09/17/16 12:27 AM) Glucose Lvl [70-99 mg/dL] 99 mg/dL 139 mg/dL (09/18/16 9:15 AM) *HI* (09/17/16 12:27 AM) Calcium Lvl [8.5-10.5 mg/dL] 9.2 mg/dL 9.2 mg/dL (09/18/16 9:15 AM) (09/17/16 12:27 AM) Lactic Acid Lvl [0.5-2.2 mMol/L] 1.2 mMol/L (09/17/16 12:27 AM) Vitamin D, 25-OH, Total [30-100 ng/mL] 53 ng/mL (09/19/16 7:53 AM) 1Result Comment: The eGFR is calculated using the CKD-EPI formula. In most young, healthy individualsthe eGFR will be >90 mL/min/1.73m2. The eGFR declines with age. An eGFR of 60-89 may be normal in some populations, particularly the elderly, for whom the CKD-EPI formula has not been extensively validated. Use of the eGFR is not recommended in the following populations: Individuals with unstable creatinine concentrations, including patients and those with serious co-morbid conditions. Patients with extremes in muscle mass or diet. The data above are obtained from the National Kidney Disease Education Program (NKDEP) which additionally recommends that when the eGFR is used in patients with extremes of body mass index for purposesof drug dosing, the eGFR should be multiplied by the estimated BMI.2Result Comment: The eGFR is calculated using the CKD-EPI formula. In most young, healthy individualsthe eGFR will be >90 mL/min/1.73m2. The eGFR declines with age. An eGFR of 60-89 may be normal in some populations, particularly the elderly, for whom the CKD-EPI formula has not been extensively validated. Use of the eGFR is not recommended in the following populations: Individuals with unstable creatinine concentrations, including patients and those with serious co-morbid conditions. Patients with extremes in muscle mass or diet. The data above are obtained from the National Kidney Disease Education Program (NKDEP) which additionally recommends that when the eGFR is used in patients with extremes of body mass index for purposesof drug dosing, the eGFR should be multiplied by the estimated BMI.PARATHYROID PROFILE Most recent to oldest [Reference Range]: 1 2 PTH Intact [11.1-79.5 pg/mL] 45.6 pg/mL (09/19/16 7:53 AM) DRUG SCREEN Most recent to oldest [Reference Range]: 1 2 U Amph Scr [Negative] Negative *NA* (09/17/16 5:34 AM) U Kristyn Scr [Negative] Negative *NA* (09/17/16 5:34 AM) U Benzodia Scr [Negative] Negative *NA* (09/17/16 5:34 AM) U Cocaine Scr [Negative] Negative *NA* (09/17/16 5:34 AM) U Opiate Scr [Negative] Positive *ABN* (09/17/16 5:34 AM) U Phencyc Scr [Negative] Negative *NA* (09/17/16 5:34 AM) U Cannab Scr [Negative] Negative *NA* (09/17/16 5:34 AM) UDS Note See Note (09/17/16 5:34 AM) TOXICOLOGY Most recent to oldest [Reference Range]: 1 2 Etoh (%) <0.003 % (09/17/16 12:27 AM) Ethanol Lvl <3.0 mg/dL (09/17/16 12:27 AM) URINE AND STOOL Most recent to oldest [Reference Range]: 1 2 UA Turbidity [Clear] Clear (09/17/16 5:34 AM) UA Color [Yellow] Yellow *NA* (09/17/16 5:34 AM) UA pH [5.0-8.0] 6.0 (09/17/16 5:34 AM) UA Spec Grav [<=1.030] 1.028 (09/17/16 5:34 AM) UA Glucose [Negative mg/dL] Negative mg/dL *NA* (09/17/16 5:34 AM) UA Blood [Negative] Moderate *ABN* (09/17/16 5:34 AM) UA Ketones [Negative mg/dL] 40 mg/dL *ABN* (09/17/16 5:34 AM) UA Protein [Negative mg/dL] 100 mg/dL *ABN* (09/17/16 5:34 AM) UA Urobilinogen [0.1-1.0 mg/dL] <=1.0 mg/dL *NA* (09/17/16 5:34 AM) UA Bili [Negative] Negative *NA* (09/17/16 5:34 AM) UA Leuk Est [Negative] Moderate *ABN* (09/17/16 5:34 AM) UA Nitrite [Negative] Negative (09/17/16 5:34 AM) UA WBC [0-5 /HPF] 33 /HPF *HI* (09/17/16 5:34 AM) UA RBC [0-2 /HPF] 6 /HPF *HI* (09/17/16 5:34 AM) UA Bacteria [None Seen /HPF] Few /HPF *NA* (09/17/16 5:34 AM) UA Sq Epi None Seen *NA* (09/17/16 5:34 AM) UA Amorph Yuki [None Seen /HPF] Occasional /HPF *NA* (09/17/16 5:34 AM) UA Mucus [None Seen /LPF] Few /LPF *NA* (09/17/16 5:34 AM) HEMATOLOGY Most recent to oldest [Reference Range]: 1 2 WBC [3.7-10.4 K/CMM] 9.3 K/CMM 12.4 K/CMM (09/18/16 9:15 AM) *HI* (09/17/16 12:27 AM) RBC [4.20-5.40 M/CMM] 4.84 M/CMM 4.86 M/CMM (09/18/16:15 AM) (09/17/1627 AM) Hgb [12.0-16.0 g/dL] 15.0 g/dL 14.9 g/dL (09/18/16:15 AM) (09/17/1627 AM) Hct [36.0-48.0 %] 44.2 % 43.7 % (09/18/16:15 AM) (09/17/16 AM) MCV [80.0-98.0 fL] 91.3 fL 90.0 fL (09/18/16:15 AM) (09/17/16 AM) MCH [27.0-31.0 pg] 31.0 pg 30.8 pg (09/18/16:15 AM) (09/17/1627 AM) MCHC [32.0-36.0 g/dL] 33.9 g/dL 34.1 g/dL (09/18/16:15 AM) (09/17/16 AM) RDW [11.5-14.5 %] 12.8 % 12.4 % (09/18/16:15 AM) (09/17/16 AM) Platelet [133-450 K/CMM] 179 K/CMM 208 K/CMM (09/18/16:15 AM) (09/17/1627 AM) MPV [7.4-10.4 fL] 9.5 fL 9.5 fL (09/18/16:15 AM) (09/17/1627 AM) Segs [45.0-75.0 %] 70.2 % 80.8 % (09/18/16:15 AM) *HI* (09/17/16: AM) Lymphocytes [20.0-40.0 %] 17.6 % 9.5 % *LOW* *LOW* (09/18/16:15 AM) (09/17/1627 AM) Monocytes [2.0-12.0 %] 10.1 % 9.1 % (09/18/16:15 AM) (5/13/17 12:27 AM) Eosinophils [0.0-4.0 %] 1.8 % 0.2 % (09/18/16 9:15 AM) (09/17/16 12:27 AM) Basophils [0.0-1.0 %] 0.3 % 0.4 % (09/18/16 9:15 AM) (09/17/16 12:27 AM) Segs-Bands # [1.5-8.1 K/CMM] 6.5 K/CMM 10.0 K/CMM (09/18/16 9:15 AM) *HI* (09/17/16:27 AM) Lymphocytes # [1.0-5.5 K/CMM] 1.6 K/CMM 1.2 K/CMM (09/18/16 9:15 AM) (09/17/16 12:27 AM) Monocytes # [0.0-0.8 K/CMM] 0.9 K/CMM 1.1 K/CMM *HI* *HI* (09/18/16 9:15 AM) (09/17/16 12:27 AM) Eosinophils # [0.0-0.5 K/CMM] 0.2 K/CMM (09/18/16 9:15 AM) ACT (TEG) Rapid [86-118 seconds] 113 seconds (09/17/16 12:27 AM) Split Point Rapid 0.4 minutes *NA* (09/17/16:27 AM) R-time Rapid [0.4-0.7 minutes] 0.7 minutes (09/17/16:27 AM) K-time Rapid [0.6-2.3 minutes] 1.3 minutes (09/17/16:27 AM) Angle Rapid [64-80 degrees] 72 degrees (09/17/16 12:27 AM) Max Amplitude Rapid [52-71 mm] 63 mm (09/17/16 12:27 AM) G-value Rapid [5.0-11.6 K d/sc] 8.3 K d/sc (09/17/16 12:27 AM) Estimated % Lysis Rapid [0.0-7.5 %] 0.0 % (09/17/16 12:27 AM) Immunizations No data available for this section Procedures Procedure Date Related Diagnosis Body Site Cervical spinal fusion 2005 Social History Social History Type Response Substance Abuse Use: None. Alcohol Current, Type Wine. Frequen cy: 1-2 times per week. Smoking Status Never smoker; Exposure to To bacco Smoke None; Cigarette Smoking Last 365 Days No; Reg Smokin g Cessation Counseling No Assessment and Plan Extracted from: Title: Clinical Document Author: Mitali Prado NP Date: [facility] Progress Note: Today's Date: 09/20/16 HD#3 Chief Complaint: "I'm afraid to be alone at home with my rib fractures" Overnight Events: DARSHAN In Hospital Operations: none Daily Events: 09/17: DARSHAN 09/19: Tearful and in pain while working with PT today 09/20: R clavicle management will be non -operative, per patient. Cleared by PT and OT for discharge to home. Patient demonstrated ways/adaptations to perform her self care and ambulate safely. Physical Examination/Findings: Vitals Tmp(F) Tmp(C) Ttype BP MAP Pulse RR SpO2 FIO2 ETCO2 09/20 08:08 97.5 36.39 oral 148/98 --- 1 07 18 95 --- --- 09/20 04:42 98.1 36.72 oral 147/88 --- 9 4 18 95 --- --- 09/19 23:54 98.1 36.72 oral 151/97 --- 8 3 18 95 --- --- 09/19 20:05 98.3 36.83 oral 144/95 --- 1 02 18 95 --- --- 09/19 15:47 98.5 36.94 oral 147/96 --- 8 6 18 96 --- --- 24 Hr Tmax: 98.5F Pain 7-8 Neuro: GCS: 15 Cranial nerve exam: intact Orientation: A&O x 3 Medications: 09/19/16 9:00 calcium-vitamin D (calcium -vitamin D 500 mg-400 intl units oral tablet, chewable) 1 tab CHEW BID 09/17/16 9:00 celecoxib 200 mg PO Q12H 09/17/16 9:49 lidocaine topical (Lidoder m 5% topical film (patch)) 2 patch TOP Q24H 09/17/16 21:00 melatonin (melatonin 3 mg oral tablet) 3 mg PO Bedtime 09/17/16 9:55 methocarbamol 1,000 mg PO Q8H 09/17/16 10:00 morphine Sulfate (MS Cont in) 30 mg PO [id number] 09/17/16 8:00 pregabalin (Lyrica) 100 mg PO Q8H 09/18/16 20:00 venlafaxine (Effexor) 75 mg PO BID Unscheduled Meds: None PRN Meds (5): 09/18/16 11:31 acetaminophen-hydrocodone 1 tab PO Q4H 09/18/16 11:32 acetaminophen-hydrocodone 2 tab PO Q4H x4 09/19--oxycodone d/candis HEENT: head-atraumatic Eye: PERRL, EOMI, normal conjunctiva Ears/nose: atraumatic Wsxdi-[id number]-ygihrpwqhm Neck-tender over well-healed C spine inc isions Cardiovascular: Cardiac examination: Regular rate, regu lar rhythm, HDS Edema-none Pulses LUE 2+ RUE 2+ LLE 2+ RLE 2+ Pulmonary: Chest exam: slightly decreased on R fie ld; non-labored breathing, R chest tender to palpation IS: 1250/855 GI/Nutrition: Abdominal exam: Soft, NT, ND, no rebound or guarding. Last BM: [employer] Diet: Regular, Boost Genitourinary: Female external genitalia: deferred, voi ding spontaneously (on oxybuynin-home med) No lab IVF: N/A 24 Hour Ins/Outs: 1680 / 1100 24 Hour Urine Output: 1100 Med: 09/17/16 9:00 oxybutynin 5 mg PO T ID Infectious Disease/Hematology: Tmax 98.5 No lab DVT prophylaxis: lovenox 30mg Q12H Antibiotics: urine cx is negative--> ci pro d/candis Endocrine: Glucose range: not strictly measured 24 Hour Insulin requirements: N/A Musculoskeletal/Skin: NWB RUE; no wounds Weight-bearing: WBAT, NWB RUE, sling Disposition: PT and OT cleared patient-h ome with family PT/OT Plan: following SW Plan: home with family CM Plan: home with family Assessment and Plan: This is a 55 year old female who present s as a level 4 consult s/p fall from standing. Patient was cleaning at home when she slipped and fell, landing on her right side. -Head trauma, -LOC. Complaining of right chest and shoulder pain. Srikanth mills seen at [facility] in [place], transferred to [facility] for HLOC. Traumatic injuries and plan as follows: Injuries: Consults/Plans: 1. R rib fx 4-11 1. IS 1000; Continue I S, VEP, MMP; rpt CXR 090 2. right comminuted clavicle fracture 2. ORS-NWB RUE; sling; Additionally, will -R clavicle fx will be managed non-opera tively -Acute on chronic pain - APMS adjusted M MT meds and s/oed.--- will send patient home on her home medications and prn norco 5 Si-2 tabs PO q6h prn pain # 30, written by Dr. Mihir Rey (CTRL # [id number]) -Impaired mobility/self care--cleared by PT/OT-see above notes Plan: Discharge to home today. Follow-ups: ORS with Dr Forrest in 1-2 [phone] [facility] ([phone]) with Mayco Bray PA-C 3-4 weeks after discharge for continued bone health treatment. [facility] prn PCP Discharge planning time is greater than 30 minutes Extracted from: Title: [facility] Author: Robina Bray Date: 09/19 Attending: Abel Jackson MD Rosario ne: Service: Surgery Code status: None Specified=FULL CODE Reason for Admission: MULTIPLE FRACTURE OF RIBS WITH ROUTINE HEALING Working DRG: Ungroupable Isolation: None Documented Consulting Physicians: Parth Ward MD Office: S ervice: Anesthesiology CHIEF COMPLAINT: "My ribs are really angel ting." HISTORY OF PRESENT ILLNESS: Ms. Guzman is a 55 year old postmenopausal woman w/ PMH significant for chronic pain syndrome (s/p C3-6 spinal fusion), anxiety, and depression who sustaineda ground level fall on 09/16/16. The history is ob tained from both the patient and through chart review. She states that she was in her usual state of health and was cleaning her house when she slipped and fell, landing on her right side. She had immed iate pain in her ribs and right shoulder and went to the local ED in [place], [place], where she resides. She was then transferred to [facility] for a higher level of care after being diagnosed w/ multiple rib fractures and a R clavicle fracture. ORS diagnosed 8 rib fractures on the R side as well as a R clavicle surgery. Risks and benefits of ORIF R clavicle have b een discussed with the patient and she i s still deciding on which course of treatment she would like to proceed with. Currently, she states she is in a lot of pain as even breathing is painful due to her rib fractures. Previous fractures: Yes, 2 ribs. Family history of fracture/osteoporosis: Yes, mother and grandmother had multiple fractures as seniors, but patient does not remember any hip fracture specifically. Previous DEXA: Yes, several years ago. S he was told at that time that she was "borderline." No additional treatment was recommended. Prescription medication for osteoporosis /penia: Denies Supplements: Women's multivitamin but no additional calcium or vitamin D supplements. Physical Activity: Reports doing [employer] everal times a week and walking. She currently lives independently and is very active with her grandchildren. She does not use any mobility aids at baseline. Additional osteoporosis risk factors: SS RI use. REVIEW OF SYSTEMS: CONSTITUTIONAL: No weight loss, fever, c hills, weakness or fatigue. HEENT: Eyes: No visual loss, blurred vis ion, double vision. Ears, Nose, Throat: No hearing loss, sneezing, congestion, no sore throat. SKIN: No rash or itching. CARDIOVASCULAR: No chest pain, chest pre ssure or chest discomfort. RESPIRATORY: No SOB. No coughing. GASTROINTESTINAL: No loss of appetite, n ausea, vomiting or diarrhea. No abdominal pain or bloody stools. GENITOURINARY: No dysuria, hematuria, po lyuria. NEUROLOGICAL: No headache, dizziness, sy ncope, paralysis, ataxia, numbness or tingling in the extremities. No change in bowel or bladder control. MUSCULOSKELETAL: See HPI. HEMATOLOGIC: No easy bleeding or bruisin g. LYMPHATICS: No enlarged nodes. PSYCHIATRIC: No history of depression or anxiety. ENDOCRINOLOGIC: No reports of sweating, cold or heat intolerance. No polyuria or polydipsia. PAST MEDICAL HISTORY: See HPI. Chronic pain Depression FAMILY HISTORY: See HPI. Mother: High blood pressure SOCIAL HISTORY: See HPI. Alcohol Details: Current, Type Wine. Frequency: 1-2 times per week. Tobacco Details: Use: Never smoker. Tobacco smo ke exposure: None. Did the Patient Smoke Cigarettes Anytime During the Last 365 Days? No. Cessation Counseling Provided? No. Substance Abuse Details: Use: None. Vitals Tmp(F) Pulse BP RR SpO2 FIO2 09/19 08:00 98.5 100 135/90 18 94 --- 09/19 04:47 98.5 83 129/88 18 94 --- 09/18 23:58 98.2 83 143/93 18 94 --- 09/18 20:18 98.7 80 155/90 18 96 --- 09/18 16:24 97.8 91 159/90 18 96 --- 24 Hr Tmax: 98.7F (37.06c) at 09/18 20:1 8 Vital Signs are the last 5 in the past 48 hours. Date Wt(kg) Wt(lb) Ht(cm) Ht(in) Method 09/17 52.73 116.00 162.56 64.00 Estim ated 09/16 (initial) 53.00 116.60 Estimate d 09/16 165.10 65.00 Stated PHYSICAL EXAM: CONSTITUTIONAL: 55 year old wo man laying in bed watching TV in NAD. Appears older than stated age and is well developed and well nourished. Appears fidgety throughout interview and exam. PSYCHOLOGICAL: Appropriate mood and affe ct. Alert and oriented. HEENT: Normocephalic, atraumatic. RESPIRATORY: Breathing is even and nonla bored on RA. MUSCULOSKELETAL: No gross deformity. No involuntary movements. Dressing over R clavicle c/d/i. Able to actively move BUE and BLE. No pedal edema present. NEUROLOGICAL: Grossly neurovascularly in tact in BLE and BUE. 24hr Labs 09/19 0753 PTH Intact 45.6 09/18 0915 Glucose Lvl 99 BUN 14 Creatinine Lvl 1.08 Sodium Lvl 138 Potassium Lvl 3.8 Chloride Lvl 101 CO2 27 AGAP 13.8 Calcium Lvl 9.2 eGFR 58 IMAGING: Radiology Report EXAM: XR RIGHT SHOULDER 3 VIEWS EXAM: XR RIGHT CLAVICLE 2 VIEWS EXAM: XR RIGHT HUMERUS 2 VIEWS DATE: 09/17/2016 2:22 AM CDT IMPRESSION: 1. Comminuted and mildly displaced right midclavicle fracture with associated soft tissue swelling 2. Right-sided rib fractures, incomplete ly evaluated. Radiology Report EXAM: CT CHEST WITH CONTRAST OUTSIDE CON SULTATION EXAM: CT ABDOMEN AND PELVIS WITH CONTRAS T OUTSIDE CONSULTATION DATE: 09/17/2016 12:51 AM CDT IMPRESSION: 1. Minimally to mildly displaced right 4 th through 11th rib fractures. 2. No pneumothorax, but a tiny pocket of extrapleural gas is seen in the soft tissues between the right 5th and 6th ribs, laterally. 3. Comminuted right midclavicular fractu re, proximal to the coracoclavicular ligaments. 4. Prior cervical fusion from about the level of imaging down to T2, posteriorly, and ACDF changes from C6 through T1. ASSESSMENT: 1. Acute R clavicle fracture and R 4-11 rib fractures 2. Current pathological fragility fractu res 3. History of healed fragility fractures 4. Clinical osteoporosis: FRAX: 12.4% Ma nickolas Osteoporotic Fracture Risk, 2.2% Hip Fracture Risk. This likely underestimates patient's true risk as FRAX does not account for parental fractures besides hip fracture. It also does not account for SSRI use. PLAN: 1. Labs: PTH and Vitamin D level ordered . 2. Medication: Begin calcium carbonate 5 00mg/vitamin D3 400IU BID. May add ergocalciferol 50,000IU weekly pending vitamin D level. 3. Pain control: Per primary. 4. Antibiotics: Per primary. 5. PT/OT: As ordered. Weightbearing stat us per ortho. 6. Education: Counseled patient on etiol ogy of bone disease and importance of fall prevention, bone health, and appropriate treatment options. Educational handout given. 7. Discharge: Per primary. [facility] in [facility] ([phone]) as outpatient 3-4 weeks after discharge. Please call [phone] with any questi ons or concerns. Robina Bray PA-C Fragility Fracture Pantry Worker Addendum by Robina Bray on [facility] Labs reviewed: Vitamin D and PTH within normal limits. 09/19/2016 16:38 Patient will need the follow ing as outpatient for continued bone health evaluation: 1. DXA 2. BSAP 3. NTX 4. TSH w/ reflex T4 Extracted from: Title: Clinical Document Author: Larry Koehler MD Segundo e: 09/17/16 [facility] nsultation Date: 09/17/2016 Consulting Trauma Surgeon: Dr. Abel Boston Referring Physician: Dr. Derian Llanos Time of Initial Patient Assessment: 01:3 0 Chief Complaint: "My ribs hurt" History of Present Illness: This is a 55 year old female who present s as a level 4 consult s/p fall from standing. Patient was cleaning at home when she slipped and fell, landing on her right side. -Head trauma, -LOC. Complaining of right chest and shoulder pain. Srikanth mills seen at [facility] in [place], transferred to [facility] for HLOC. Past Medical History: Chronic pain syndrome Anxiety Depression Past Surgical History: Back surgery Foot surgery Home Medications: Morphine Oxybutinin Venlafaxine Allergies: NKDA Social History: Occasional EtOH Denies smoking, illicit drugs Family History: Non-contributory Review of Systems: Constitutional symptoms: Denies fever, weight loss, night sweats, fatigue HEENT: Denies ear pain, hearing loss, na alex drainage, sore throat, tooth pain, hoarseness, eye redness, visual changes Cardiovascular: Denies murmurs, chest pa in Respiratory: Denies, cough, wheezing, ap marcos, cyanosis, difficulty breathing Gastrointestinal: Denies decreased feedi ng/appetite, vomiting, diarrhea, constipation, blood in the stools, abdominal pain Genitourinary: Denies dysuria, hematuria , decreased or absent urine output Musculoskeletal: Denies joint swelling, tenderness, weakness Skin: Denies rashes, dryness, itching Neurological: Denies seizures, loss of c onsciousness, numbness, tingling, weakness Psychiatric: Denies mood changes, sleep problems Endocrine: Denies changes in body habitu s, weight gain Hematologic / lymphatic: Denies bleeding , jaundice, swollen gland Physical Examination: Neuro: AOx3, not agitated Eye: PERRL, EOMI, normal conjunctiva HENT: normocephalic, ears normal, nasal and oral mucosa intact Neck: supple, non-tender Chest: non-labored breathing, symmetric chest rise, no crepitus; R chest tender to palpation Cardiac: RRR, no murmurs Abdomen: non-distended, soft, non-tende r Pelvis: stable to lateral compression /Perineum: normal genitalia, no wound s to perineum Back: Normal ROM. No swelling. Rectal: Warm, Intact. LUE: 5/5 motor, sensory intact, 2+ radi al RUE: right shoulder tender to palpation , motor limited by pain, sensory intact, 2+ radial LLE: 5/5 motor, sensory intact, 2+ femo ral, 2+ DP/PT RLE: 5/5 motor, sensory intact, 2+ femo ral, 2+ DP/PT Skin: grossly intact Labs: Labs (Last four charted values) WBC H 12.4 (SEPTEMBER 17) Hgb 14.9 (SEPTEMBER 17) Hct 43.7 (SEPTEMBER 17) Plt 208 (SEPTEMBER 17) Na 138 (SEPTEMBER 17) K 3.7 (SEPTEMBER 17) CO2 25 (SEPTEMBER 17) Cl 100 (SEPTEMBER 17) Cr 0.78 (SEPTEMBER 17) BUN 10 (SEPTEMBER 17) Glucose Random H 139 (SEPTEMBER 17) Ca 9.2 (SEPTEMBER 17) Radiology: CT Chest: Non and mildly displaced fx R 4-11 ribs Moderately displaced R clavicle fx CT Chest/Abd/Pelvis: 4-11 R rib fx Tiny R hemothorax R clavicle fx Borderline CBD dilation Assessment and Plan: This is a 55 year old female who present s as a level 4 consult s/p fall from standing. Patient was cleaning at home when she slipped and fell, landing on her right side. -Head trauma, -LOC. Complaining of right chest and shoulder pain. Srikanth mills seen at [facility] in [place], transferred to [facility] for HLOC. Upon arrival, GCS 15, SBP 183, HR 95. Pr imary survey intact. Secondary showed right shoudler and chest tenderness. Labs: Hgb 14.9, LA 1.2, BE 2, ACT 113, mA 63, lysis 0.0%. Injuries and plan as follows: Injuries: Consults/Plans: 1. R rib fx 4-11 1. IS 1250 cc of predi cted 855 in ER; Continue IS, VEP, MMP; rpt CXR 0900 2. R clavicle fx 2. ORS consulted; F/u recs Additionally, Admit to Floor Tertiary in AM Consult APMS this AM for acute on chroni c pain TRAUMA ATTENDING ADDENDUM I have seen and examined patient with jadiel french and concur with their findings and plan as noted in bold underlined italics. DOS 09/17/2016 -Marcial Jackson MD MSO# [id number]
--- OUTSIDE RECORDS SUMMARY | 2019-09-19 10:30 | XMS REPORT | Continuity of Care Document ---
:1960 Author Organization Schedulize Care Team Providers Name Role Phone Schedulize Unavailable Un available Problems Problem Status Onset Classification Date Comments Sourc e Date Reported MULTIPLE Active [facility] FRACTURE OF 7 Medical RIBS WITH Center ROUTINE H RIB FX/FALL Active [facility] 7 [facility] Chronic pain Resolved Problem 09/23/2016 [place] as (finding) 6 [facility] Depressive Resolved Problem 09/23/2016 [facility] disorder Medical (disorder) Center MULTIPLE FX OF [place] RIBS, UNSP Medical SIDE, SUBS FOR Cente r Medications Medication Details Route Status Patient Ordering Order Source Instructions Provider Date Calcium Carbonate 1 tab, CHEW, Active [place] 1250 MG / BID, # 60 tab, 2017 Medical Cholecalciferol 0 Refill(s) Cent er 400 UNT Chewable Tablet Acetaminophen 325 See Active [facility] as MG / Hydrocodone Instructions, 2016 edical Bitartrate 5 MG PRN Pain Score C enter Oral Tablet 6-10, 1-2 tab PO Q6H prn for pain not to exceed 8 tablets/day, # 30 tab, 0 Refill(s) Calcium Carbonate Notes: (calcium No Longer 09/05 [facility] 1250 MG / carbonate-vit D Active 2016 Medica l Cholecalciferol 500mg-400unit Ce nter 400 UNT Chewable chew TAB) Same Tablet as: [place] 500+D Effexor Notes: (Same No Longer [facility] As: Effexor) Active 2017 Medical Center acetaminophen-hyd Notes: (Same No Longer [facility] rocodone as: [place] Active 2017 Medical 325/5) Do not Center exceed 4gm/day of acetaminophen. acetaminophen-hyd Notes: (Same No Longer [facility] rocodone as: [place] Active 2016 Medical 325/5) Do not Center exceed 4gm/day of acetaminophen. Rocephin Notes: (Same Inactive [facility] As: Rocephin). 2017 Medical Use with 100 mL Center NS and infuse over 30 min MEDICATION WASTE Product Size: 1000 mg Product Wasted: ___ mg Acetaminophen 325 Route: PO, Inactive [place] MG / Hydrocodone Dosing Weight 2017 M edical Bitartrate 5 MG 52.727, kg, Cent er Oral Tablet Q4H, PRN Pain [[place] 5/325] Score 1-5, Start date: 09/18/16 11:00:00 CDT, Duration: 30 day, Stop date: 10/18/16 10:59:00 CDT Ciprofloxacin Notes: May [place] Longer [place] interfere Active 2016 Medical w/enteral Center feedings - Take 1 hr before or 2 hrs after antacids, dairy pdt & minerals. On empty stomach. remove patch Notes: Remove No Longer [facility] patch 12 hours Active 2016 Medical after Center application each day. Melatonin 3 MG Notes: (Same No Longer [place] Extended Release as: Melatonin) Active 2016 Medical Tablet Center montelukast 10 mg 10 mg = 1 tab, Active [place] oral tablet PO, Bedtime, # 2017 Medic al 90 tab, 0 Center Refill(s) venlafaxine 75 mg 75 mg = 1 tab, Active [facility] oral tablet PO, BID, # 180 2017 Medic al tab, 0 Center Refill(s) oxybutynin 5 mg 5 mg = 1 tab, Active [facility] oral tablet PO, BID, # 60 2017 Medica l tab, 1 Center Refill(s) tizanidine 4 mg 4 mg = 1 tab, Active [facility] oral tablet PO, Q8H, PRN 2017 Medical for muscle Center spasms Acetaminophen Notes: [place] Longer [place] acetaminophen Active 2017 Medical 4000 mg/day (4 Center gm/day). (Same as: Tylenol Extra Strength) [place] Contin Notes: Do not No Longer Alpesh as crush (Same Active 2016 Medical as:Oramorph SR, Center [place] Contin) Methocarbamol Notes: (Same No Longer [facility] as:Robaxin) Active 2016 Medical Center Oxycodone Notes: (Same [place] Longer [place] Hydrochloride 5 as: Roxicodone) Active 2017 Medical MG Oral Tablet Center Lidocaine Notes: Apply No Longer [place] Hydrochloride only once for Active 2016 Medi poli 0.05 MG/MG up to 12 hours Center Transdermal Patch in a 24-hour [Lidoderm] period (12 hours on and 12 hours off). (Same as: Lidoderm) "Remove old patch before application of new patch" venlafaxine Notes: (Same No Longer [place] As: Effexor) Active 2017 Medical Center oxybutynin Notes: Same as: No Longer [place] Ditropan) Active 2017 Medical Center Docusate Sodium Notes: (Same No Longer [facility] Jar[place] 100 MG Oral as: Colace) (Do Active 2016 Medi poli Capsule Not Crush) Center senna 8.6 mg oral Notes: (Same No Longer [place] tablet as: Senokot) Active 2017 Medical Center celecoxib Notes: NSAID. No Longer [place] as Please check Active 2016 Medical indication. Not Center for seizure. (Same As: CeleBREX) Lyrica Notes: (Same No Longer [place] as: Lyrica) Active 2017 [facility] Labetalol 10 mg, 2 mL, No Longer [place] Route: IVP, Active 2016 Medical Drug form: INJ, Center ONCE, Dosing Weight 52.727, kg, PRN Hypertension, Start date: 09/17/16 6:32:00 CDT Trandate 10 mg, 2 mL, Inactive [place] Route: IVP, 2016 Medical Drug form: INJ, Center ONCE, Dosing Weight 52.727, kg, Start date: 09/17/16 6:28:00 CDT, Stop date: 09/17/16 6:28:00 CDT Alprazolam Notes: With Inactive [place] food or milk 2016 Medical (Same as: [place] Xanax) Labetalol 10 mg, 2 mL, Inactive [place] Route: IVP, 2016 Medical Drug form: INJ, Center Q15Min, Dosing Weight 52.727, kg, Start date: 09/17/16 6:19:00 CDT, Duration: 3 doses or times, Stop date: 09/17/16 6:49:00 CDT Tramadol Notes: Not to Inactive [facility] exceed 2017 Medical 400mg/day. Center (Same As: [facility]) Acetaminophen Notes: Infuse Inactive [facility] over 15 minutes 2017 Medical Do not exceed Center 4gm/day of acetaminophen MEDICATION WASTE Product Size: 1000 mg Product Wasted: ___ mg Oxycodone Notes: (Same Inactive [facility] Hydrochloride 5 as: Roxicodone) 2017 Medical MG Oral Tablet Center Enoxaparin Notes: (Same No Longer [place] as as: Lovenox) Active [address] [place] [address] Plasma-Lyte A Notes: WASTE: No Longer [facility] PH-7.4 1000 ml F/P - Sink; E - Active [facility] edical INJ 1,[address] Bin morphine 30 mg 30 mg = 1 cap, Active [facility] oral capsule PO, BID, PRN 2017 Medica l Pain, 0 Center Refill(s) Dilaudid Notes: Same as: Inactive [place] as Dilaudid [address] [place] [address] Hydromorphone Notes: Same as: Inactive [facility] Dilaudid [address] [place] [address] Morphine 4 mg, Route: Inactive [facility] IVP, ONCE, 2017 Medical Dosing Weight Center 53, kg, Priority: STAT, Start date: 09/17/16 2:44:00 CDT, Stop date: 09/17/16 2:44:00 CDT Hydromorphone Notes: Same as: Inactive [facility] Dilaudid [address] [place] [address] Dilaudid Notes: Same as: Inactive 09/17[facility] Al[place]esh as Dilaudid [address] [place] [address] Hydromorphone Notes: Same as: Inactive [facility] Dilaudid [address] [place] [address] Zofran 4 mg, Route: Inactive [facility] IVP, Drug form: 2017 Medical INJ, ONCE, Center Dosing Weight 53, kg, Priority: STAT, Start date: 09/17/16 0:27:00 CDT, Stop date: 09/17/16 0:27:00 CDT Hydromorphone 1 mg, Route: Inactive [place] IVP, ONCE, 2017 Medical Dosing Weight Center 53, kg, Priority: STAT, Start date: 09/17/16 0:16:00 CDT, Stop date: 09/17/16 0:16:00 CDT Saline Flush 0.9% Notes: Same as: No Longer 09/05 3/ [facility] BD Posiflush Active 2016 [facility] Center Allergies, Adverse Reactions, Alerts No Known Medication Allergies Immunizations No Data Provided for This Section Results Order Name Results Value Reference Date Interpretation Comments Jessica rce Range CHEM PANEL Vitamin D, 53 30 - 100 09/19 [facility] 25-OH, Total /2016 [facility] PARATHYROID PTH Intact 45.6 11.1 - 09/19 [facility] PROFILE 79.5 [facility] CHEM PANEL eGFR 58 09/18 Result Comment: The Medical eGFR is Center calculated using the CKD-EPI formula. In most young, healthy individuals the eGFR will be >90 mL/min/1.73m2 . The eGFR declines with age. An eGFR of 60-89 may be normal in some populations, particularly the elderly, for whom the CKD-EPI formula has not been extensively validated. Use of the eGFR is not recommended in the following populations:< br/>
Elo viduals with unstable creatinine concentration s, including patients and those with serious co-morbid conditions.<b r/>
Patie nts with extremes in muscle mass or diet.

The data above are obtained from the National Kidney Disease Education Program (NKDEP) which additionally recommends that when the eGFR is used in patients with extremes of body mass index for purposes of drug dosing, the eGFR should be multiplied by the estimated BMI. CHEM PANEL Potassium Lvl 3.8 3.5 - 5.1 09/18 [place] [facility] CHEM PANEL Chloride Lvl 101 95 - 109 09/18 a [facility] CHEM PANEL Sodium Lvl 138 135 - 145 09/18 [facility] CHEM PANEL Creatinine 1.08 0.50 - 09/18 [facility] Lvl 1.40 [facility] CHEM PANEL BUN 14 7 - 22 09/18 [facility] CHEM PANEL Glucose Lvl 99 70 - 99 09/18 [facility] CHEM PANEL Calcium Lvl 9.2 8.5 - 10.5 09/18 [facility] CHEM PANEL CO2 27 24 - 32 05 [facility] CHEM PANEL AGAP 13.8 10.0 - 05 20.0 [facility] HEMATOLOGY Segs 70.2 45.0 - 09/18 75.0 /2016 [facility] HEMATOLOGY Lymphocytes 17.6 20.0 - 09/18 40.0 [facility] HEMATOLOGY Monocytes 10.1 2.0 - 12.0 09/18 [facility] HEMATOLOGY Eosinophils 1.8 0.0 - 4.0 09/18 [facility] HEMATOLOGY Segs-Bands # 6.5 1.5 - 8.1 09/18 [facility] HEMATOLOGY Basophils 0.3 0.0 - 1.0 09/18 [facility] HEMATOLOGY Lymphocytes # 1.6 1.0 - 5.5 09/18 [facility] HEMATOLOGY Monocytes # 0.9 0.0 - 0.8 09/18 [facility] HEMATOLOGY Eosinophils # 0.2 0.0 - 0.5 09/18 [facility] HEMATOLOGY Hgb 15.0 12.0 - 09/18 16.0 [facility] HEMATOLOGY Hct 44.2 36.0 - 09/18 48.0 [facility] HEMATOLOGY MCV 91.3 80.0 - 09/18 98.0 [facility] HEMATOLOGY MCH 31.0 27.0 - 09/18 31.0 [facility] HEMATOLOGY MCHC 33.9 32.0 - 09/18 36.0 [facility] HEMATOLOGY RDW 12.8 11.5 - 09/18 14.5 [facility] HEMATOLOGY Platelet 179 133 - 450 09/18 [facility] HEMATOLOGY MPV 9.5 7.4 - 10.4 09/18 [facility] HEMATOLOGY WBC 9.3 3.7 - 10.4 09/18 [facility] HEMATOLOGY RBC 4.84 4.20 - 09/18 5.40 [facility] DRUG SCREEN U Benzodia Negative Negative 09/17 [facility] *NA* /2016 [facility] (09/17/16 5:34 AM) Center DRUG SCREEN U [place] Negative Negative 09[place] *NA* /2016 Medical (09/17/16 5:34 AM) Center DRUG SCREEN U Amph [place] Negative Negative 09/17 [place] *NA* [place] (09/17/16 5:34 AM) Center DRUG SCREEN UDS Note See Note 09/17 [facility] (09/17/16 5:34 AM) Medica l Center DRUG SCREEN U Phencyc Scr Negative Negative 09/17 [place] *NA* Medical (09/17/16 5:34 AM) Center DRUG SCREEN U Cannab Scr Negative Negative 09/17 [place] *NA* Medical (09/17/16 5:34 AM) Center DRUG SCREEN U Opiate Sc[place] Positive Negative 09/17 [place] *ABN* [facility] (09/17/16 5:34 AM) Center DRUG SCREEN U Cocaine Scr Negative Negative 09/17 [place] *NA* Medical (09/17/16 5:34 AM) [place] URINE AND UA pH 6.0 5.0 - 8.0 09/17 [facility] STOOL /2016 Medical [place] URINE AND UA Color Yellow Yellow 09/17 [facility] STOOL *NA* /2016 [facility] (09/17/16 5:34 AM) [place] URINE AND UA Bili Negative Negative 09/17 [facility] STOOL *NA* /2016 [facility] (09/17/16 5:34 AM) [place] URINE AND UA Protein 100 mg/dL Negative 09/17 [facility] mg/dL /2016 [facility] URINE AND UA Spec Grav 1.028 <=1.030 09/17 [facility] /2016 [facility] URINE AND UA Turbidity Clear Clear 09/17 [facility] STOOL (09/17/16 5:34 AM) /2016 Medica l [place] URINE AND UA Nitrite Negative Negative 09/17 [facility] (09/17/16 5:34 AM) /2016 Medica [facility] URINE AND UA Blood Moderate Negative 09/17 [facility] STOOL *ABN* /2016 Medical (09/17/16 5:34 AM) Center URINE AND UA Sq Epi None Seen 09/17 [facility] URINE AND UA Bacteria Few /HPF None Seen 09/17 [facility] STOOL /HPF /2016 Medical [place] URINE AND UA RBC 6 0 - 2 09/17 [facility] STOOL /2016 Medical [place] URINE AND UA Ketones 40 mg/dL Negative 09/17 [facility] STOOL mg/dL [facility] URINE AND UA Glucose Negative Negative 09/17 [facility] mg/dL mg/dL [facility] URINE AND UA WBC 33 0 - 5 09/17 [facility] URINE AND UA Leuk Est Moderate Negative 09/17 [facility] *ABN* /2016 [facility] (09/17/16 5:34 AM) Center URINE AND UA Amorph Occasional None Seen [place] /HPF /HPF /2016 [facility] URINE AND UA Mucus Few /LPF None Seen 09/17 [facility] STOOL /LPF /2016 [facility] URINE AND UA <=1.0 0.1 - 1.0 09/17 [facility] Urobilinogen mg/dL [facility] CHEM PANEL Lactic Acid 1.2 0.5 - 2.2 09/17 [place] Lvl /2016 [facility] ELECTROLYTE AGAP 16.7 10.0 - 09/17 [facility] S 20.0 [facility] ELECTROLYTE Chloride Lvl 100 95 - 109 09/17 [place] as S [facility] ELECTROLYTE CO2 25 24 - 32 09/17 [facility] S /2016 [facility] ELECTROLYTE Creatinine 0.78 0.50 - 09/17 [facility] S Lvl 1.40 [facility] ELECTROLYTE Sodium Lvl 138 135 - 145 09/17 [place] [facility] ELECTROLYTE Potassium Lvl 3.7 3.5 - 5.1 09/17 [place] [facility] ELECTROLYTE Glucose Lvl 139 70 - 99 09/17 [facility] S [facility] ELECTROLYTE BUN 10 7 - 22 09/17 [facility] S [facility] ELECTROLYTE eGFR 86 09/17 [facility] S Comment: The Medical eGFR is Center calculated using the CKD-EPI formula. In most young, healthy individuals the eGFR will be >90 mL/min/1.73m2 . The eGFR declines with age. An eGFR of 60-89 may be normal in some populations, particularly the elderly, for whom the CKD-EPI formula has not been extensively validated. Use of the eGFR is not recommended in the following populations:< br/>
Elo viduals with unstable creatinine concentration s, including patients and those with serious co-morbid conditions.<b r/>
Patie nts with extremes in muscle mass or diet.

The data above are obtained from the National Kidney Disease Education Program (NKDEP) which additionally recommends that when the eGFR is used in patients with extremes of body mass index for purposes of drug dosing, the eGFR should be multiplied by the estimated BMI. ELECTROLYTE Calcium Lvl 9.2 8.5 - 10.5 09/17 [place] [facility] HEMATOLOGY Estimated % 0.0 0.0 - 7.5 09/17 [facility] Lysis [facility] HEMATOLOGY Max Amplitude 63 52 - 71 09/17 [facility] HEMATOLOGY G-value Rapid 8.3 5.0 - 11.6 09/17 [place] [facility] HEMATOLOGY [place] 0.4 09/17 [facility] HEMATOLOGY ACT (TEG) 113 86 - 118 09/17 [facility] HEMATOLOGY R-time Rapid 0.7 0.4 - 0.7 09/17 [facility] HEMATOLOGY K-time Rapid 1.3 0.6 - 2.3 09/17 [facility] HEMATOLOGY Angle Rapid 72 64 - 80 09/17 [facility] HEMATOLOGY MPV 9.5 7.4 - 10.4 09/17 [facility] HEMATOLOGY Platelet 208 133 - 450 09/17 [facility] HEMATOLOGY MCHC 34.1 32.0 - 09/17 36.0 [facility] HEMATOLOGY MCH 30.8 27.0 - 09/17 [place] 31.0 [facility] HEMATOLOGY RDW 12.4 11.5 - 09/17 [place] 14.5 [facility] HEMATOLOGY Hct 43.7 36.0 - 09/17 [place] 48.0 [facility] HEMATOLOGY WBC 12.4 3.7 - 10.4 09/17 [facility] HEMATOLOGY Hgb 14.9 12.0 - 09/17 [place] 16.0 [facility] HEMATOLOGY MCV 90.0 80.0 - 09/17 [place] 98.0 [facility] HEMATOLOGY RBC 4.86 4.20 - 09/17 [place] 5.40 [facility] HEMATOLOGY Basophils 0.4 0.0 - 1.0 09/17 [facility] HEMATOLOGY Eosinophils 0.2 0.0 - 4.0 09/17 [facility] HEMATOLOGY Segs 80.8 45.0 - 09/17 [place] 75.0 [facility] HEMATOLOGY Monocytes 9.1 2.0 - 12.0 09/17 [facility] HEMATOLOGY Lymphocytes 9.5 20.0 - 09/17 [place] 40.0 [facility] HEMATOLOGY Monocytes # 1.1 0.0 - 0.8 09/17 [place] [facility] HEMATOLOGY Lymphocytes # 1.2 1.0 - 5.5 09/17 [place] [facility] HEMATOLOGY Segs-Bands # 10.0 1.5 - 8.1 09/17 [place] as [facility] TOXICOLOGY Ethanol Lvl <3.0 mg/dL 09/17 [facility] as [facility] TOXICOLOGY Etoh (%) <0.003 % 09/17 [facility] BLOOD BANK ABO/Rh A POS 09/17 [facility] RESULTS [facility] BLOOD BANK Antibody Scrn Negative 09/17 [facility] RESULTS (09/17/16 12:19 AM) [facility] Pathology Reports No Data Provided for This Section Diagnostic Reports Report Value Date Source Chest 1view DX EXAM: XR CHEST 1 VIEW 09/18/2016 [facility] edical DATE: 09/18/2016 9:04 AM CDT Cent er INDICATION: Abnormal chest sounds COMPARISON: Previous Day FINDINGS: Lines and Tubes: None Heart and Mediastinum: Unremarkable. Lungs and Pleura: Basilar atelectasis. Other: Cervical post surgical changes. Right cla vicular fracture. IMPRESSION: 1. Stable. Chest 1view DX EXAM: XR CHEST 1 VIEW 09/17/2016 [facility] edical DATE: 09/17/2016 9:00 AM CDT Cent er INDICATION: Pain Post Trauma TECHNIQUE: AP chest IMPRESSION: The lungs are slightly low in volume. There is mild atelectasis in both lung bases. No pleural effusion or pneumothorax. No definite airspace consolidation. Humerus 2 views DX EXAM: XR RIGHT SHOULDER 3 VIEWS 09/17/2016 [facility] EXAM: XR RIGHT CLAVICLE 2 VIEWS Center EXAM: XR RIGHT HUMERUS 2 VIEWS DATE: 09/17/2016 2:22 AM CDT INDICATION: Pain and swelling COMPARISON: None TECHNIQUE: AP views in inte rnal and external rotation, and an axillary view of the right shoulder, AP and lateral radiographs of the right humerus and AP and axial views of the right clavicle FINDINGS: There is a comminu monty and mildly displaced right midclavicle fracture with inferior displacement of the distal clavicle along with mild overriding. Acromioclavicular and glenohumeral joints ar e intact. Right humerus is n ormal in appearance. There is soft tissue swelling associated with the clavicle fracture. Mildly displaced at least right 4, 6 lateral rib fractures are noted. Lower cervical spine hardware is partially visualized. IMPRESSION: 1. Comminuted and mildly dis placed right midclavicle fracture with associated soft tissue swelling 2. Right-sided rib fractures, incompletely evalu ated. Clavicle DX EXAM: XR RIGHT SHOULDER 3 VIEWS 09/17/2016 [facility] EXAM: XR RIGHT CLAVICLE 2 VIEWS Center EXAM: XR RIGHT HUMERUS 2 VIEWS DATE: 09/17/2016 2:22 AM CDT INDICATION: Pain and swelling COMPARISON: None TECHNIQUE: AP views in inte rnal and external rotation, and an axillary view of the right shoulder, AP and lateral radiographs of the right humerus and AP and axial views of the right clavicle FINDINGS: There is a comminu monty and mildly displaced right midclavicle fracture with inferior displacement of the distal clavicle along with mild overriding. Acromioclavicular and glenohumeral joints ar e intact. Right humerus is n ormal in appearance. There is soft tissue swelling associated with the clavicle fracture. Mildly displaced at least right 4, 6 lateral rib fractures are noted. Lower cervical spine hardware is partially visualized. IMPRESSION: 1. Comminuted and mildly dis placed right midclavicle fracture with associated soft tissue swelling 2. Right-sided rib fractures, incompletely evalu ated. Shoulder series DX EXAM: XR RIGHT SHOULDER 3 VIEWS 09/17/2016 [facility] EXAM: XR RIGHT CLAVICLE 2 VIEWS Center EXAM: XR RIGHT HUMERUS 2 VIEWS DATE: 09/17/2016 2:22 AM CDT INDICATION: Pain and swelling COMPARISON: None TECHNIQUE: AP views in inte rnal and external rotation, and an axillary view of the right shoulder, AP and lateral radiographs of the right humerus and AP and axial views of the right clavicle FINDINGS: There is a comminu monty and mildly displaced right midclavicle fracture with inferior displacement of the distal clavicle along with mild overriding. Acromioclavicular and glenohumeral joints ar e intact. Right humerus is n ormal in appearance. There is soft tissue swelling associated with the clavicle fracture. Mildly displaced at least right 4, 6 lateral rib fractures are noted. Lower cervical spine hardware is partially visualized. IMPRESSION: 1. Comminuted and mildly dis placed right midclavicle fracture with associated soft tissue swelling 2. Right-sided rib fractures, incompletely evalu ated. Chest 1view DX EXAM: XR CHEST 1 VIEW 09/17/2016 [facility] edical DATE: 09/17/2016 12:[address] INDICATION: hemothorax, multiple rib fx - hemoth orax, multiple rib fx COMPARISON: Previous Day FINDINGS: Lines and Tubes: None Heart and Mediastinum: Accentuated by low lung v olumes. Lungs and Pleura: Patchy [place] mid and lower lungs. Elevation right hemidiaphragm. While evaluation is limited given semi-upright positioning, no distinct pneumothorax is identified. Other: Cervical postsurgical changes. Right clavicular fracture. Rib fractures. IMPRESSION: 1. Basilar atelectasis versus pneumonia. Torso-Outside Consult EXAM: CT CHEST WITH CONTRAST OUTSIDE C ONSULTATION 09/17/2016 [facility] CT EXAM: CT ABDOMEN AND PELVIS WITH CONTRAST OUTSID E CONSULTATION Center DATE: 09/17/2016 12:51 AM CDT INDICATION: Second interpret ation of outside CT performed on trauma transfer patient. COMPARISON: None. OUTSIDE REPORT: From [facility] Impression: Multiple right rib fractures. Moderately displaced fracture involving the mid to distal right clavicle. TECHNIQUE: Images of the [facility] st, abdomen and pelvis following intravenous administration of contrast. Delayed imaging was then performed through the abdomen and pelvis, using a radiation reduction techni que. Axial, coronal and sagittal images displaye d. FINDINGS: Lines and Tubes: None. Lower Neck: Anterior and pos terior cervical fusion hardware is present with bone graft material. The vertebral body level between C6 and T1. The posterior fusion hardware spans above the level of imaging and down to T2. Thoracic Aorta and Mediastin um: No mediastinal hematoma or thoracic aortic injury. No pericardial fluid. Lungs and Pleura: No lung co ntusion. No other acute pulmonary abnormality. No pleural fluid or pneumothorax. However, a tiny pocket of extrapleural gas is demonstrated between the right 5th and 6th ribs, laterally. Hepatobiliary: Normal. Gallbladder: No injury. Spleen: Normal. Pancreas: Normal. Adrenals: Normal. Kidneys: No injury. Ureters and Bladder: No injury. Gastrointestinal Tract: No injury. Peritoneum and Retroperitoneum: No free air or f luid. Abdominal/Pelvic Vasculature: No vascular injury . Reproductive Organs: No injury. Lymphadenopathy: None. Spine/Bones: A mildly displa candis comminuted fracture of the right clavicle middle 3rd is present, just proximal to the coracoclavicular ligaments. Right 4th through 11th rib fractures are present, most o f them minimally displaced. No acute abnormality of the spine. Other bones and joints intact and in anatomic alignment. Soft Tissues: Breast implants are noted bilatera lly. IMPRESSION: 1. Minimally to mildly displaced right 4th throu gh 11th rib fractures. 2. No pneumothorax, but a ti ny pocket of extrapleural gas is seen in the soft tissues between the right 5th and 6th ribs, laterally. 3. Comminuted right midclavi cular fracture, proximal to the coracoclavicular ligaments. 4. Prior cervical fusion fro m about the level of imaging down to T2, posteriorly, and ACDF changes from C6 through T1. This report is in general agreement with the out side interpretation. Consultation Notes No Data Provided for This Section Discharge Summaries No Data Provided for This Section History and Physicals No Data Provided for This Section Vital Signs Vital Sign Value Date Comments Source Systolic (mm Hg) 137 09/20/2016 [facility] Diastolic (mm Hg) 79 09/20/2016 [facility] Heart Rate 99 09/20/2016 [facility] Respitory Rate 20 09/20/2016 [facility] Systolic (mm Hg) 166 09/20/2016 [facility] Diastolic (mm Hg) 103 09/20/2016 [facility] Heart Rate 104 09/20/2016 [facility] Temperature Oral (F) 98.8 F 09/20/2016 [facility] Temperature Oral (F) 97.2 F 09/20/2016 [facility] Heart Rate 96 09/20/2016 [facility] Respitory Rate 18 09/20/2016 [facility] Systolic (mm Hg) 143 09/20/2016 [facility] Diastolic (mm Hg) 98 09/20/2016 [facility] Respitory Rate 18 09/20/2016 [facility] Temperature Oral (F) 97.5 F 09/20/2016 [facility] Height 162.56 cm 09/17/2016 [facility] BMI Calculated 19.95 09/17/2016 [facility] Weight 52.727 09/17/2016 [facility] BMI Calculated 19.44 09/17/2016 [facility] Weight 53 09/17/2016 [facility] Height 165.1 cm 09/17/2016 [facility] Encounters Location Location Encounter Encounter Reason Attending ADM DC Stat us Source Details Type Number For Provider Date Date Visit [facility] [id number] Ronadrian 09/17 09/20 [facility] /2016 [facility] Procedures Procedure Code Date Perfomer Comments Source Cervical spinal [id number] 05/08/2005 [facility] Assessment and Plan Assessment and Plan Date Source Extracted from:Title: Clinical Document 09/20/2016 [facility] Author: Mitali Prado NP Date: 09/20/16 [facility] Tra[facility] Surgery Floor Progress Note: Today's Date: 09/20/16 HD#3 Chief [...] safely. Physical Examination/Findings: Vitals Tmp(F) Tmp(C) Ttype B P MAP Pulse RR SpO2 FIO2 ETCO2 09/20 08:08 97.5 36.39 oral 148/98 --- 107 18 95 --- --- 09/20 04:42 98.1 36.72 oral 147/88 --- 94 18 95 --- --- 09/19 23:54 98.1 36.72 oral 151/97 --- 83 18 95 --- --- 09/19 20:05 98.3 36.83 oral 144/95 --- 102 18 95 --- --- 09/19 15:47 98.5 36.94 oral 147/96 --- 86 18 96 --- --- 24 Hr Tmax: [...] (melatonin 3 mg oral tablet) 3 mg P O Bedtime 09/17/16 9:55 methocarbamol 1,000 mg PO Q8H 09/17/16 10:00 morphine Sulfate (MS Contin) 30 mg PO Q38Aett 09/17/16 8:00 pregabalin (Lyrica) 100 mg PO Q8H 09/18/16 20:00 venlafaxine (Effexor) 75 mg PO BID Unscheduled Meds: None PRN Meds (5): 09/18/16 11:31 acetaminophen-hydrocodone 1 tab PO Q4H 09/18/16 11:32 acetaminophen-hydrocodone 2 tab PO Q4H x4 09/19--oxycodone d/candis HEENT: head-atraumatic Eye: PERRL, EOMI, normal conjunctiva Ears/nose: atraumatic Jaivn-cudtgmflj-txlcauvzww Neck-tender over well-healed C spine incisions Cardiovascular: Cardiac examination: Regular rate, regular rhythm, HDS Edema-none Pulses LUE 2+ RUE 2+ LLE 2+ RLE 2+ Pulmonary: Chest exam: slightly decreased on R fie ld; non-labored breathing, R chest tender to palpation IS: 1250/855 GI/Nutrition: Abdominal exam: Soft, NT, ND, no rebound or guarding. 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 Diet: Regular, Boost Genitourinary: Female external genitalia: deferred, voi ding spontaneously (on oxybuynin-home med) No lab IVF: N/A 24 Hour Ins/Outs: 1680 / 1100 24 Hour Urine Output: 1100 Med: 09/17/16 9:00 oxybutynin 5 mg PO TID Infectious Disease/Hematology: Tmax 98.5 No lab DVT prophylaxis: lovenox 30mg Q12H Antibiotics: urine cx is negative--> cipro d/candis Endocrine: Glucose range: not strictly measured 24 Hour Insulin requirements: N/A Musculoskeletal/Skin: NWB RUE; no wounds Weight-bearing: WBAT, NWB RUE, sling Disposition: PT and OT cleared patient-home with family PT/OT Plan: following SW Plan: [...] and shoulder pain. Srikanth mills seen at [facility] in [place], transferred to [facility] for HLOC. Traumatic injuries and plan as follows: Injuries: Consults/Plans: 1. R rib fx 4-11 1. IS 1000; Continue IS, VEP, MMP; r pt CXR 090 2. right comminuted clavicle fracture 2. ORS-NWB RU E; sling; Additionally, will -R clavicle fx will be managed non-operatively -Acute on chronic pain - APMS adjusted M MT meds and s/oed.--- will send patient home on her home medications and prn norco 5/325 Si-2 tabs PO q6h prn pain # 30, written by Dr. Mihir Rey (CTRL # [id number]) -Impaired mobility/self care--cleared by PT/OT-see above not es Plan: Discharge to home today. Follow-ups: ORS with Dr Forrest in 1-2 [phone] [facility] ([phone]) with Mayco Bray PA-C 3-4 weeks after discharge for continued bone health treatment. [facility] prn PCP Discharge planning time is greater than 30 minutes Extracted from:Title: [facility] Author: Robina Bray Date: 09/19/16 Attending: Abel Jackson MD Service: Surgery Code status: None Specified=FULL CODE Reason for Admission: MULTIPLE FRACTURE OF RIBS WITH ROUTINE HEALING Working DRG: Ungroupable Isolation: None Documented Consulting Physicians: Parth Ward MD Office: Service: Anesth esiology CHIEF COMPLAINT: "My ribs are really hurting." HISTORY OF PRESENT ILLNESS: Ms. Guzman is [...] and went to the local ED in [place], [place], where she resides. [facility] after being diagnosed w/ multiple rib fractures and a R clavicle fracture. ORS diagnosed 8 rib fractures on the R side as well as a R clavicle surgery. Risks and benefits of ORIF R clavicle have b venkatan discussed with the patient and she i [...] additional treatment was recommended. Prescription medication for osteoporosis/penia: Denies Supplements: Women's multivitamin but no additional calcium or vitamin D supplements. Physical Activity: Reports doing Aniceto s everal times a week and walking. She currently lives independently and is very active with her grandchildren. She does not use any mobility aids at baseline. Additional osteoporosis risk factors: SSRI use. REVIEW OF SYSTEMS: CONSTITUTIONAL: No weight loss, fever, chills, weakness or f atigue. HEENT: Eyes: No visual loss, blurred vis ion, double vision. Ears, Nose, Throat: No hearing loss, sneezing, congestion, no sore throat. SKIN: No rash or itching. CARDIOVASCULAR: No chest pain, chest pressure or chest disco mfort. RESPIRATORY: No SOB. No coughing. GASTROINTESTINAL: No loss of appetite, n ausea, vomiting or diarrhea. No abdominal pain or bloody stools. GENITOURINARY: No dysuria, hematuria, polyuria. NEUROLOGICAL: No headache, dizziness, sy ncope, paralysis, ataxia, numbness or tingling in the extremities. No change in bowel or bladder control. MUSCULOSKELETAL: See HPI. HEMATOLOGIC: No easy bleeding or bruising. LYMPHATICS: No enlarged nodes. PSYCHIATRIC: No history [...] Ht(in) Method 09/17 52.73 116.00 162.56 64.00 Estimated 09/16 (initial) 53.00 116.60 Estimated 09/16 165.10 65.00 Stated PHYSICAL EXAM: CONSTITUTIONAL: 55 year old wo man laying in bed watching TV in NAD. Appears older than stated age and is well developed and well nourished. Appears fidgety throughout interview and exam. PSYCHOLOGICAL: Appropriate mood and affect. Alert and orient ed. HEENT: Normocephalic, atraumatic. RESPIRATORY: Breathing is even and nonlabored on RA. MUSCULOSKELETAL: No gross deformity. No involuntary movements. Dressing over R clavicle c/d/i. Able to actively move BUE and BLE. No pedal edema present. NEUROLOGICAL: Grossly neurovascularly intact in BLE and BUE. 24hr Labs 09/19 [...] soft tissue swelling 2. Right-sided rib fractures, incompletely evaluated. Radiology Report EXAM: CT CHEST WITH CONTRAST OUTSIDE CONSULTATION EXAM: CT ABDOMEN AND PELVIS WITH CONTRAST OUTSIDE CONSULTATI ON DATE: 09/17/2016 12:51 AM CDT IMPRESSION: 1. Minimally to mildly displaced right 4th through 11th rib fractures. 2. No pneumothorax, [...] 4-11 rib fractures 2. Current pathological fragility fractures 3. History of healed fragility fractures 4. Clinical osteoporosis: FRAX: 12.4% Ma nickolas Osteoporotic Fracture Risk, 2.2% Hip Fracture Risk. This likely underestimates patient's true risk as FRAX does not account for parental fractures beside s hip fracture. It also does not account for SSRI use. PLAN: 1. Labs: PTH and Vitamin D level ordered. 2. Medication: Begin calcium carbonate 5 00mg/vitamin D3 400IU BID. May add ergocalciferol 50,000IU weekly pending vitamin D level. 3. Pain control: Per primary. 4. Antibiotics: Per primary. 5. PT/OT: As ordered. Weightbearing status per ortho. 6. Education: Counseled patient on etiol ogy of bone disease and importance of fall prevention, bone health, and appropriate treatment options. Educational handout given. 7. Discharge: Per primary. Follow up in [facility] ([phone]) as outpatient 3-4 weeks after discharge. Please call [phone] with any questions or concerns. Robina Bray PA-C [employer] Security Project Manager Addendum by Robina Bray on 09/19/2016 16:38 [facility] reviewed: Vitamin D and PTH within normal l imits. Patient will need the following as outpa tient for continued bone health evaluation: 1. DXA 2. BSAP 3. NTX 4. TSH w/ reflex T4 Extracted from:Title: Clinical Document Author: Larry Koehler MD Date: 09/17/16 [facility] Consultation Date: 09/17/2016 Consulting Trauma Surgeon: Dr. Abel Jackson Referring Physician: Dr. Derian Llanos Time of Initial Patient Assessment: 01:30 Chief Complaint: "My ribs hurt" History of Present Illness: This is a 55 year old female who present s as a level 4 consult s/p fall from standing. Patient was cleaning at home when she slipped and fell, landing on her right side. -Head trauma, -LOC. Complaining of right chest and shoulder pain. Srikanth mills seen at [facility] in [place], transferred to [facility] for HLOC. Past Medical History: Chronic pain syndrome Anxiety Depression Past Surgical History: Back surgery Foot surgery Home Medications: Morphine Oxybutinin Venlafaxine Allergies: NKDA Social History: Occasional EtOH Denies smoking, illicit drugs Family History: Non-contributory Review of Systems: Constitutional symptoms: Denies fever, weight loss, night s weats, fatigue HEENT: Denies ear pain, hearing loss, na alex drainage, sore throat, tooth pain, hoarseness, eye redness, visual changes Cardiovascular: Denies murmurs, chest pain Respiratory: Denies, cough, wheezing, apnea, cyanosis, diffi culty breathing Gastrointestinal: Denies decreased feedi ng/appetite, vomiting, diarrhea, constipation, blood in the stools, abdominal pain Genitourinary: Denies dysuria, hematuria, decreased or absen t urine output Musculoskeletal: Denies joint swelling, tenderness, weakness Skin: Denies rashes, dryness, itching Neurological: Denies seizures, loss of c onsciousness, numbness, tingling, weakness Psychiatric: Denies mood changes, sleep problems Endocrine: Denies changes in body habitus, weight gain Hematologic / lymphatic: Denies bleeding, jaundice, swollen gland Physical Examination: Neuro: AOx3, not agitated Eye: PERRL, EOMI, normal conjunctiva HENT: normocephalic, ears normal, nasal and oral mucosa int act Neck: supple, non-tender Chest: non-labored breathing, symmetric chest rise, no crepitus; R chest tender to palpation Cardiac: RRR, no murmurs Abdomen: non-distended, soft, non-tender Pelvis: stable to lateral compression /Perineum: normal genitalia, no wounds to perineum Back: Normal ROM. No swelling. Rectal: Warm, Intact. LUE: 5/5 motor, sensory intact, 2+ radial RUE: right shoulder tender to palpation , motor limited by pain, sensory intact, 2+ radial LLE: 5/5 motor, sensory intact, 2+ femoral, 2+ DP/PT RLE: 5/5 motor, sensory intact, 2+ femoral, 2+ DP/PT Skin: grossly intact Labs: Labs [...] Complaining of right chest and shoulder pain. Initia lly seen at [facility] in [place], transferred to [facility] for HLOC. Upon arrival, GCS 15, SBP 183, HR 95. Pr imary survey intact. Secondary showed right shoudler and chest tenderness. Labs: Hgb 14.9, LA 1.2, BE 2, ACT 113, mA 63, lysis 0.0%. Injuries and plan as follows: Injuries: Consults/Plans: 1. R rib fx 4-11 1. IS 1250 cc of predicted 855 in ER; Continue IS, VEP, MMP; rpt CXR 0900 2. R clavicle fx 2. ORS consulted; F/u recs Additionally, Admit to Floor Tertiary in AM Consult APMS this AM for acute on chronic pain TRAUMA ATTENDING ADDENDUM I have seen and examined patient with jadiel french and concur with their findings and plan as noted in bold underlined italics. DOS 09/17/2016 -Marcial Jackson MD MSO# [id number] Plan of Care No Data Provided for This Section Social History Social History Date Source Social History TypeResponse 09/17/2016 [facility] Substance Abuse Use: None. Alcohol Current, Type Wine. Frequency: 1-2 times per week. Smoking Status Never smoker; Exposure to Tobacco Smoke None; Cigarette Smoking Last 365 Days No; Reg Smoking Cessation Counseling No Family History No Data Provided for This Section Advance Directives No Data Provided for This Section Functional Status No Data Provided for This Section
--- NOTE | 2019-09-19 10:37 | RAD REPORT ---
EXAM DESCRIPTION: CT - Head Brain Wo Cont - 09/19/2019 10:17 am CLINICAL HISTORY: HEADACHE Headache, drowsiness COMPARISON: Head Brain Wo Cont dated 02/12/2019 TECHNIQUE: All CT scans are performed using dose optimization technique as appropriate and may inclu de automated exposure control or mA/KV adjustment according to patient size. FINDINGS: No intracranial hemorrhage, hydrocephalus or extra-axial fluid collection.Moderate brain a trophy.No areas of brain edema or evidence of midline shift. The paranasal sinuses and mastoids are clear. The calvarium is intact. IMPRESSION: No acute intracranial abnormality.
--- NOTE | 2019-09-19 10:56 | RAD REPORT ---
EXAM DESCRIPTION: CT - Head angio - 09/19/2019 10:46 am CLINICAL HISTORY: persistent severe headache right side Headache, drowsiness COMPARISON: Head Brain Wo Cont dated 09/19/2019; Head Brain Wo Cont dated 02/12/2019 TECHNIQUE: CT angiography of the head was performed with MIPs. All CT scans are performed using dose optimization technique as appropriate and may include automated exposure control or mA/KV adjustment according to patient size. FINDINGS: No evidence of aneurysm is detected. No flow-limiting stenosis or vascular malformation id entified. Antegrade flow is seen in the vertebral arteries. The vertebral arteries are codominant. The visualized dural venous sinuses are patent. IMPRESSION: No significant flow abnormality is detected.
[2019-09-19] MEDS ORDERED: dexAMETHasone 10 MG/ML VIAL ONE (11:37)
[2019-09-19] MEDS ORDERED: METOCLOPRAMIDE 10 MG/2mL INJ ONE (11:37)
[2019-09-19] MEDS ORDERED: DIPHENHYDRAMINE 50 MG/ML VIAL ONE (11:37)
--- NOTE | 2019-09-19 13:17 | ER ---
Nurse's Notes [facility] Name: Melanie Crump Age: 58 yrs Sex: Female : 1960 Arrival Date: 09/19/2019 Time: 09:43 Bed 8 Private MD: Queta Finley Diagnosis: Migraine without aura, intractable Presentation: 09/18 09:49 Chief complaint: Patient states: sharp, stabbing pain to R voodoo that began 15 minutes ss ago. Pt has no other complaints. Coronavirus screen: Proceed with normal triage. Ebola Screen: Patient denies exposure to infectious person. Patient denies travel to an Ebola-affected area in the 21 days before illness onset. Initial Sepsis Screen: Does the patient meet any 2 criteria? RR > 20 per min. HR > 90 bpm. Does the patient have a suspected source of infection? No. Patient's initial sepsis screen is negative. Risk Assessment: Do you want to hurt yourself or someone else? Patient reports no desire to harm self or others. Onset of symptoms was September 19, 2019. 09:49 Method Of Arrival: Ambulatory ss 09:49 Acuity: BON 2 ss Historical: - Allergies: 09:51 No Known Allergies; ss - PMHx: 09:51 Arthritis; Chronic pain; Hypertension; ss - Immunization history:: Adult Immunizations up to date. - Social history:: Smoking status: Patient denies any tobacco usage or history of. Screenin:00 Abuse screen: Denies threats or abuse. Nutritional screening: No deficits noted. em Tuberculosis screening: No symptoms or risk factors identified. Fall Risk None identified. Assessment: 10:05 General: Appears uncomfortable, slender, well groomed, well developed, Behavior is em crying, restless, Denies fever. Pain: Complains of pain in right voodoo Pain does not radiate. Pain currently is 10 out of 10 on a pain scale. Quality of pain is described as sharp, shooting, Pain began 30 min ago. Is continuous, Noted to be crying, grimacing, moaning, restless. Neuro: Level of Consciousness is awake, alert, obeys commands, Oriented to person, place, time, situation, Appropriate for age Reports headache in right that is the "worst ever", Denies blurred vision diplopia. Cardiovascular: Capillary refill < 3 seconds Patient's skin is warm and dry. Rhythm is sinus tachycardia. Respiratory: Airway is patent Respiratory effort is even, unlabored, Respiratory pattern is regular, symmetrical. GI: Reports nausea. Derm: Skin is intact, is healthy with good turgor, Skin is pink, warm \\T\\ dry. Musculoskeletal: Capillary refill < 3 seconds, Range of motion: intact in all extremities. 10:12 Reassessment: wheeled to CT via stretcher, pt appears more comfortable, nausea has em improved. 10:22 Reassessment: reports pain is still 10/10, pt grimacing and crying, MARIJA Bishop notified em of pain level. 11:27 Reassessment: provider at bedside discussing POC Patient states symptoms have not em improved. 12:20 Reassessment: Patient appears in no apparent distress at this time. Patient and/or em family updated on plan of care and expected duration. Pain level reassessed. Patient is alert, oriented x 3, equal unlabored respirations, skin warm/dry/pink. Patient states feeling better. 13:42 Reassessment: Patient appears in no apparent distress at this time. Patient and/or em family updated on plan of care and expected duration. Pain level reassessed. Patient is alert, oriented x 3, equal unlabored respirations, skin warm/dry/pink. reports headache is slightly better 8/10 Patient states feeling better. Vital Signs: 09:49 BP 147 / 127; Pulse 115; Resp 24; Temp 97.2(TE); Pulse Ox 98% on R/A; Weight 52.62 kg; ss Height 5 ft. 5 in. (165.10 cm); Pain 10/10; 10:20 BP 165 / 105; Pulse 103; Resp 20; Pulse Ox 99% on R/A; Pain 10/10; em 11:27 BP 161 / 103; Pulse 107; Resp 18; Pulse Ox 99% on R/A; Pain 10/10; em 12:23 BP 159 / 94; Pulse 108; Resp 18; Temp 97.9(O); Pulse Ox 99% on R/A; Pain 8/10; em 09:49 Body Mass Index 19.30 (52.62 kg, 165.10 cm) 09:49 pt is restless while obtaining VS ss ED Course: 09:43 Patient arrived in ED. mr 09:43 Queta Finley MD is Private Physician. mr 09:50 Triage completed. ss 09:51 Arm band placed on right wrist. ss 09:52 Harsh Escudero, DEVENDRA is Primary Nurse. em 09:53 Asael Camara MD is Attending Physician. [facility] 09:56 [facility] jr[facility] 10:00 Patient has correct armband on for positive identification. Bed in low position. Call em light in reach. security monitor on. Pulse ox on. NIBP on. 10:00 Initial lab(s) drawn, by me, sent to lab. Inserted saline lock: 20 gauge in right em forearm, using aseptic technique. Blood collected. 10:17 CT Head Brain wo Cont In Process Unspecified. EDMS 10:47 CT Head Angio In Process Unspecified. EDMS 11:17 EKG done, by ED staff, reviewed by Asael Camara MD. tc 13:16 Brandon Garcia MD is Referral Physician. jr8 13:43 No provider procedures requiring assistance completed. IV discontinued, intact, em bleeding controlled, No redness/swelling at site. Pressure dressing applied. Administered Medications: 10:05 Drug: Zofran (Ondansetron) 4 mg Route: IVP; Site: right forearm; em 10:22 Follow up: Response: No adverse reaction; Marked relief of symptoms; Nausea is decreasedem 10:07 Drug: Dilaudid 0.5 mg Route: IVP; Site: right forearm; em 10:22 Follow up: Response: No adverse reaction; No change in condition; Pain is unchanged, em physician notified 10:28 Drug: Dilaudid 0.5 mg Route: IVP; Site: right forearm; em 11:27 Follow up: Response: No adverse reaction; No change in condition; Pain is unchanged, em physician notified 11:48 Drug: Benadryl 25 mg Route: IVP; Site: right forearm; em 12:20 Follow up: Response: No adverse reaction; Marked relief of symptoms; Pain is decreased em 11:50 Drug: Reglan 10 mg Route: IVP; Site: right forearm; em 12:20 Follow up: Response: No adverse reaction; Marked relief of symptoms; Pain is decreased em 11:52 Drug: Decadron - Dexamethasone 10 mg Route: IVP; Site: right forearm; em 12:20 Follow up: Response: No adverse reaction; Marked relief of symptoms; Pain is decreased em Outcome: 13:17 Discharge ordered by MD. burroughs 13:43 Discharged to home ambulatory. em 13:43 Condition: good 13:43 Discharge instructions given to patient, Instructed on discharge instructions, follow up and referral plans. medication usage, Demonstrated understanding of instructions, follow-up care, medications, Prescriptions given X 1. 13:43 Patient left the ED. em Signatures: Dispatcher [employer] Asael Barajas MD MD cha Rivera, Mary mr Harsh Escudero, RN RN em Glenda Reyes RN RN ss Dario Cortez, Bebe Lomax, drop board worker EKG Ttc Corrections: (The following items were deleted from the chart) 09:52 09:49 BP 152 / 89; Pulse 115bpm; Resp 24bpm; Pulse Ox 98% RA; Temp 97.2F Temporal; ss 52.62 kg; Height 5 ft. 5 in.; BMI: 19.3; Pain 10/10; ss
--- NOTE | 2019-09-19 13:17 | EDPHYS ---
Physician Documentation [facility] Name: Melanie Crump Age: 58 yrs Sex: Female : 1960 Arrival Date: 09/19/2019 Time: 09:43 Bed 8 Private MD: Queta Finley ED Physician Asael Camara HPI: 09/18 10:14 This 58 yrs old Female presents to ER via Ambulatory with complaints of Head jr8 Pain. 10:20 The patient complains of pain to the right nondenominational. The patient describes the headache jr8 as throbbing, unrelenting. Onset: The symptoms/episode began/occurred acutely, today. Associated signs and symptoms: Pertinent positives: nausea. Severity of symptoms: At its worst the pain was severe, in the emergency department the pain is unchanged. Headache History: Denies prior headaches. The symptoms are alleviated by nothing. the symptoms are aggravated by nothing. The patient has not experienced similar symptoms in the past. The patient has not recently seen a physician. Historical: - Allergies: 09:51 No Known Allergies; ss - PMHx: 09:51 Arthritis; Chronic pain; Hypertension; ss - Immunization history:: Adult Immunizations up to date. - Social history:: Smoking status: Patient denies any tobacco usage or history of. ROS: 10:20 Eyes: Negative for injury, pain, redness, and discharge, ENT: Negative for injury, jr8 pain, and discharge, Neck: Negative for injury, pain, and swelling, Cardiovascular: Negative for chest pain, palpitations, and edema, Respiratory: Negative for shortness of breath, cough, wheezing, and pleuritic chest pain, Back: Negative for injury and pain, MS/Extremity: Negative for injury and deformity, Skin: Negative for injury, rash, and discoloration. 10:20 Abdomen/GI: Positive for nausea, Negative for abdominal pain, vomiting, diarrhea, constipation, abdominal cramps, abdominal distension. 10:20 Neuro: Positive for headache. Exam: 13:16 Eyes: Pupils equal round and reactive to light, extra-ocular motions intact. Lids and jr8 lashes normal. Conjunctiva and sclera are non-icteric and not injected. Cornea within normal limits. Periorbital areas with no swelling, redness, or edema. ENT: Nares patent. No nasal discharge, no septal abnormalities noted. Tympanic membranes are normal and external auditory canals are clear. Oropharynx with no redness, swelling, or masses, exudates, or evidence of obstruction, uvula midline. Mucous membranes moist. Neck: Trachea midline, no thyromegaly or masses palpated, and no cervical lymphadenopathy. Supple, full range of motion without nuchal rigidity, or vertebral point tenderness. No Meningismus. Cardiovascular: Regular rate and rhythm with a normal S1 and S2. No gallops, murmurs, or rubs. Normal PMI, no JVD. No pulse deficits. Respiratory: Lungs have equal breath sounds bilaterally, clear to auscultation and percussion. No rales, rhonchi or wheezes noted. No increased work of breathing, no retractions or nasal flaring. Abdomen/GI: Soft, non-tender, with normal bowel sounds. No distension or tympany. No guarding or rebound. No evidence of tenderness throughout. Back: No spinal tenderness. No costovertebral tenderness. Full range of motion. Skin: Warm, dry with normal turgor. Normal color with no rashes, no lesions, and no evidence of cellulitis. MS/ Extremity: Pulses equal, no cyanosis. Neurovascular intact. Full, normal range of motion. Neuro: Awake and alert, GCS 15, oriented to person, place, time, and situation. Cranial nerves II-XII grossly intact. Motor strength 5/5 in all extremities. Sensory grossly intact. Cerebellar exam normal. Normal gait. Vital Signs: 09:49 BP 147 / 127; Pulse 115; Resp 24; Temp 97.2(TE); Pulse Ox 98% on R/A; Weight 52.62 kg; ss Height 5 ft. 5 in. (165.10 cm); Pain 10/10; 10:20 BP 165 / 105; Pulse 103; Resp 20; Pulse Ox 99% on R/A; Pain 10/10; em 11:27 BP 161 / 103; Pulse 107; Resp 18; Pulse Ox 99% on R/A; Pain 10/10; em 12:23 BP 159 / 94; Pulse 108; Resp 18; Temp 97.9(O); Pulse Ox 99% on R/A; Pain 8/10; em 09:49 Body Mass Index 19.30 (52.62 kg, 165.10 cm) 09:49 pt is restless while obtaining VS ss MDM: 09:53 Patient medically screened. julien 13:16 Data reviewed: vital signs, nurses notes, lab test result(s), radiologic studies, CT jr8 scan. Data interpreted: Pulse oximetry: on room air is 99 %. Interpretation: normal. Counseling: I had a detailed discussion with the patient and/or guardian regarding: the historical points, exam findings, and any diagnostic results supporting the discharge/admit diagnosis, lab results, radiology results, the need for outpatient follow up, a neurologist, to return to the emergency department if symptoms worsen or persist or if there are any questions or concerns that arise at home. Response to treatment: the patient's symptoms have markedly improved after treatment. 09/18 09:58 Order name: CBC with Diff; Complete Time: 10:50 09/18 09:58 Order name: Basic Metabolic Panel; Complete Time: 09/18 09:58 Order name: Protime (+inr); Complete Time: :50 09/18 09:58 Order name: Ptt, Activated; Complete Time: 10:50 09/18 10:23 Order name: ESR; Complete Time: 11:11 09/18 10:23 Order name: CRP; Complete Time: 11:16 09/18 09:58 Order name: CT Head Brain wo Cont; Complete Time: :50 09/18 10:24 Order name: CT Head Angio; Complete Time: 10:58 jr8 Administered Medications: 10:05 Drug: Zofran (Ondansetron) 4 mg Route: IVP; Site: right forearm; em 10:22 Follow up: Response: No adverse reaction; Marked relief of symptoms; Nausea is decreasedem 10:07 Drug: Dilaudid 0.5 mg Route: IVP; Site: right forearm; em 10:22 Follow up: Response: No adverse reaction; No change in condition; Pain is unchanged, em physician notified 10:28 Drug: Dilaudid 0.5 mg Route: IVP; Site: right forearm; em 11:27 Follow up: Response: No adverse reaction; No change in condition; Pain is unchanged, em physician notified 11:48 Drug: Benadryl 25 mg Route: IVP; Site: right forearm; em 12:20 Follow up: Response: No adverse reaction; Marked relief of symptoms; Pain is decreased em 11:50 Drug: Reglan 10 mg Route: IVP; Site: right forearm; em 12:20 Follow up: Response: No adverse reaction; Marked relief of symptoms; Pain is decreased em 11:52 Drug: Decadron - Dexamethasone 10 mg Route: IVP; Site: right forearm; em 12:20 Follow up: Response: No adverse reaction; Marked relief of symptoms; Pain is decreased em Disposition: 09/19 05:29 Co-signature as Attending Physician, Asael Camara MD I agree with the assessment and julien plan of care. Disposition: 09/19/19 13:17 Discharged to Home. Impression: Migraine without aura, intractable. - Condition is Stable. - Discharge Instructions: Migraine Headache. - Prescriptions for Fioricet 50- 325-40 mg Oral tablet - take 2 tablet by ORAL route every 4 hours as needed not to exceed 6 tablets per 24hrs; 20 tablet. - Medication Reconciliation Form, Thank You Letter, Antibiotic Education, Prescription Opioid Use form. - Follow up: Brandon Garcia MD; When: 2 - 3 days; Reason: Recheck today's complaints, Continuance of care, Re-evaluation by your physician. - Problem is new. - Symptoms have improved. Signatures: Dispatcher [employer] Asael Barajas MD MD cha Munoz, Edgar RN RN Glenda Price RN RN Dario Cortez PA PA jr8 Corrections: (The following items were deleted from the chart) 09/18 13:43 13:17 09/19/2019 13:17 Discharged to Home. Impression: Migraine without aura, em intractable. Condition is Stable. Forms are Medication Reconciliation Form, Thank You Letter, Antibiotic Education, Prescription Opioid Use. Follow up: Brandon Garcia; When: 2 - 3 days; Reason: Recheck today's complaints, Continuance of care, Re-evaluation by your physician. Problem is new. Symptoms have improved. jr8
[2019-09-19 13:52] VITALS: O2SAT 99
[2019-09-19 14:02] VITALS: BP 159/94; TEMP 97.9
--- NOTE | 2019-09-20 11:24 | EKG ---
Test Date: 2019-09-19 Test Time: 11:04:00 Acupressure Therapist: ZE MEASUREMENT RESULTS: Intervals: Rate: 99 ID: [id number] QRSD: 88 QT: 386 QTc: 495 [place]: P: 71 ID: [id number] QRS: -47 T: -27 INTERPRETIVE STATEMENTS: Normal sinus rhythm Left axis deviation T wave abnormality, consider anterolateral ischemia Prolonged QT Abnormal ECG Compared to ECG 02/12/2019 07:33:09 Left-axis deviation now present Sinus bradycardia no longer present T-wave abnormality still present Possible ischemia still present Electronically Signed On 09-20-19 11:21:51 CDT by Juan Samano
== END 2019-09-19 13:43 | disposition home or self-care (01) ==
LOC: ER 09:40
DX: G43.019 Migraine without aura, intractable, without status migrainosus (principal); I10 Essential (primary) hypertension
CPT/HCPCS: 93005; 85025; 80048; 36415; 85610; 85730; 85652; 86140; 70450; 70496; 96375; 96374; 99285; Q9967; J2765; J1200; J1100; J1170 ×2; J2405